=== PATIENT | male | born 1935 | race Caucasian/White ===

== ENCOUNTER 2016-02-24 10:32 | Emergency (ER) | payer MEDICARE, OTHER ==
[~2016-02-24] VITALS: Ht 170.2 cm; Wt 64.0 kg
[~2016-02-24 10:32] MED LIST: ALBU8I INH; ALPR.25 PO; NORC10TA2 PO; SYMB80AE INH; TAB-TAB PO; TIOT18I; TRAZ300T2 PO; ZOCO40TA PO
[2016-02-24 10:51] VITALS: BP 135/83; PULSE 92; RESP 16; TEMP 98.8; O2SAT 95
[2016-02-24] MEDS ORDERED: SODIUM CHLOR 0.9% 1000 ML INJ 1,000 ML IV SCH (11:02)
[2016-02-24] MEDS ORDERED: MULT1TAB85 PO (11:03)
[2016-02-24] MEDS ORDERED: TRAZ300T2 PO (11:03)
[2016-02-24] MEDS ORDERED: SPIRCAP INH (11:03)
[2016-02-24] MEDS ORDERED: ALPR0.25 PO (11:03)
[2016-02-24] MEDS ORDERED: VENTAER INH (11:03)
[2016-02-24] MEDS ORDERED: AMBI5TAB PO (11:03)
[2016-02-24] MEDS ORDERED: VITATAB43 PO (11:03)
--- NOTE | 2016-02-24 11:12 | PD ---
HPI Chief Complaint: Abdominal Pain Time Seen by Provider: 10:55 Travel History International Travel<30 days: No Contact w/Intl Traveler<30days: No Traveled to known affect area: No History of Present Illness HPI The patient is a 80-year-old male who presents to the emergency department for abdominal pain of 4 days' duration. The patient complains of crampy lower abdominal pain for the last 4 days without any associated nausea, vomiting, or change in appetite. However, he does note decreased caliber of stool over the last 2 days, last bowel movement was yesterday, slightly thinner than normal, without any visible blood. The patient has a history of previous cholecystectomy and appendectomy. He denies any history of diverticulitis. The patient denies any associated fever, chills, sweats, dysuria, frequency, or urgency. The patient is currently undergoing chemotherapy every 3 weeks, last dose was one week ago, by his oncologist, Dr. Chicas. The patient has a history of right lobectomy secondary to lung cancer, thinks it was stage I. He denies any known history of metastasis. PFSH Past Medical History Autoimmune Disease: No Depression: Yes Cancer: Yes (LUNG) Cardiovascular Problems: Yes (CHOLESTEROL) High Cholesterol: Yes Chemotherapy: Yes ( last sunday) COPD: Yes Diabetes: No Diminished Hearing: Yes Endocrine: No Glaucoma: No Genitourinary: No Hepatitis: No Hiatal Hernia: No Hypertension: No Immune Disorder: No Musculoskeletal: Yes (PLATE NECK) Neurologic: No Psychiatric: No Reproductive: No Respiratory: Yes (copd) Thyroid Disease: No PNEUMOCCOCAL Vaccine (Year): 2004 Past Surgical History Abdominal Surgery: Yes (SHARYN, LIH, ) Body Medical Devices: PENILE IMPLANT Eye Surgery: Yes (BILAT. CATARACT SX) Genitourinary Surgery: Yes (PENILE IMPLANT) Joint Replacement: Yes (PLATE IN NECK) Neurologic Surgery: Yes (CERVICAL FUSION) Oral Surgery: Yes (DENTAL) Pacemaker: No Thoracic Surgery: No Other Surgery: Yes (TEETH EXTRACTION) Social History Alcohol Use: Yes (OCCASIONAL) Tobacco Use: Yes (2 PKS/DAY) Substance Use: No Allergies-Medications (Allergen,Severity, Reaction): Coded Allergies: No Known Allergies (Verified , 02/24/16) Reported Meds & Prescriptions Reported Meds & Active Scripts Active Reported Multivitamin Men (Multiple Vitamins W/ Minerals) 1 Tab Tab 1 Tab PO DAILY Vitamin [id number] Acid (Cobalamine Combinations) 500-400 Mcg Tab 1 Tab PO DAILY Ventolin Hfa 18 GM Inh (Albuterol Sulfate) 90 Mcg/Act Aer 1 Puff INH Q4H PRN Spiriva Handihaler (Tiotropium Inh) 18 Mcg Cap 18 Mcg INH DAILY 1 capsule = 18 mcg Trazodone (Trazodone HCl) 300 Mg Tab 300 Mg PO HS Alprazolam 0.25 Mg Tab 0.25 Mg PO TID PRN Ambien (Zolpidem Tartrate) 5 Mg Tab 5 Mg PO HS PRN Review of Systems Except as stated in HPI: all other systems reviewed are Neg General / Constitutional: No: Fever Cardiovascular: No: Chest Pain or Discomfort Respiratory: Positive: Shortness of Breath (chronic shortness of breath secondary to lobectomy, history of lung cancer) Gastrointestinal: Positive: Abdominal Pain, Changes in Bowel Habits, No: Nausea, Vomiting, Diarrhea, Loss of Appetite Musculoskeletal: No: Myalgias, Arthralgias Skin: No Rash Physical Exam Narrative GENERAL: Awake, alert, pleasant 80-year-old male who appears his stated age and is in no acute respiratory distress. SKIN: Warm and dry. HEAD: Atraumatic. Normocephalic. EYES: No injection or drainage. ENT: No nasal bleeding or discharge. Mucous membranes pink and moist. NECK: Trachea midline. No JVD. CARDIOVASCULAR: Regular rate and rhythm. No murmur appreciated. Heart rate in the 90s. Well-healed scar right lateral chest wall. RESPIRATORY: No accessory muscle use. Diminished breath sounds right lung. GASTROINTESTINAL: Abdomen soft, tender palpation left lower quadrant. No rebound tenderness. MUSCULOSKELETAL: No obvious deformities. No clubbing. No cyanosis. No edema. NEUROLOGICAL: Awake and alert. No obvious cranial nerve deficits. Motor grossly within normal limits. Normal speech. PSYCHIATRIC: Appropriate mood and affect; insight and judgment normal. Data Data Last Documented VS Vital Signs Date Time Temp Pulse Resp B/P Pulse Ox O2 Delivery O2 Flow Rate FiO2 02/24/16 11:24 84 20 134/72 96 02/24/16 10:51 98.8 Orders Complete Blood Count With Diff (02/24/16 11:02) Comprehensive Metabolic Panel (02/24/16 11:02) Lipase (02/24/16 11:02) Lactic Acid (02/24/16 11:02) Urinalysis - C+S If Indicated (02/24/16 11:02) Ct Abd/Pel W/O Iv Contrast (02/24/16 11:02) Iv Access Insert/Monitor (02/24/16 11:02) Ecg Monitoring (02/24/16 11:02) Oximetry (02/24/16 11:02) Morphine Inj (Morphine Inj) (02/24/16 11:15) Ondansetron Inj (Zofran Inj) (02/24/16 11:15) Ciprofloxacin 400 Mg Premix (Cipro 400 M (02/24/16 11:15) Metronidazole 500 Mg Inj (Flagyl 500 Mg (02/24/16 11:15) Sodium Chlor 0.9% 1000 Ml Inj (Ns 1000 M (02/24/16 11:02) Sodium Chloride 0.9% Flush (Ns Flush) (02/24/16 11:15) Labs Laboratory Tests Test 02/24/16 11:05 White Blood Count 11.2 TH/MM3 Red Blood Count 4.99 MIL/MM3 Hemoglobin 15.8 GM/DL Hematocrit 47.8 % Mean Corpuscular Volume 95.8 FL Mean Corpuscular Hemoglobin 31.7 PG Mean Corpuscular Hemoglobin 33.1 % Concent Red Cell Distribution Width 14.0 % Platelet Count 223 TH/MM3 Mean Platelet Volume 7.2 FL Neutrophils (%) (Auto) 77.6 % Lymphocytes (%) (Auto) 14.7 % Monocytes (%) (Auto) 5.7 % Eosinophils (%) (Auto) 0.4 % Basophils (%) (Auto) 1.6 % Neutrophils # (Auto) 8.8 TH/MM3 Lymphocytes # (Auto) 1.6 TH/MM3 Monocytes # (Auto) 0.6 TH/MM3 Eosinophils # (Auto) 0.0 TH/MM3 Basophils # (Auto) 0.2 TH/MM3 CBC Comment DIFF FINAL Differential Comment Sodium Level 139 MEQ/L Potassium Level 4.0 MEQ/L Chloride Level 104 MEQ/L Carbon Dioxide Level 27.3 MEQ/L Anion Gap 8 MEQ/L Blood Urea Nitrogen 7 MG/DL Creatinine 0.97 MG/DL Estimat Glomerular Filtration 75 ML/MIN Rate Random Glucose 93 MG/DL Lactic Acid Level 1.0 mmol/L Calcium Level 8.4 MG/DL Total Bilirubin 0.6 MG/DL Aspartate Amino Transf 11 U/L (AST/SGOT) Alanine Aminotransferase 20 U/L (ALT/SGPT) Alkaline Phosphatase 63 U/L Total Protein 6.7 GM/DL Albumin 3.0 GM/DL Lipase 72 U/L [facility] Medical Decision Making Medical Screen Exam Complete: Yes Emergency Medical Condition: Yes Medical Record Reviewed: Yes Interpretation(s) CT of the abdomen and pelvis reveals mild colitis involving the splenic flexure and distal colon. Otherwise stable CT appearance of the abdomen and pelvis. Laboratory Tests Test 02/24/16 11:05 White Blood Count 11.2 TH/MM3 Red Blood Count 4.99 MIL/MM3 Hemoglobin 15.8 GM/DL Hematocrit 47.8 % Mean Corpuscular Volume 95.8 FL Mean Corpuscular Hemoglobin 31.7 PG Mean Corpuscular Hemoglobin 33.1 % Concent Red Cell Distribution Width 14.0 % Platelet Count 223 TH/MM3 Mean Platelet Volume 7.2 FL Neutrophils (%) (Auto) 77.6 % Lymphocytes (%) (Auto) 14.7 % Monocytes (%) (Auto) 5.7 % Eosinophils (%) (Auto) 0.4 % Basophils (%) (Auto) 1.6 % Neutrophils # (Auto) 8.8 TH/MM3 Lymphocytes # (Auto) 1.6 TH/MM3 Monocytes # (Auto) 0.6 TH/MM3 Eosinophils # (Auto) 0.0 TH/MM3 Basophils # (Auto) 0.2 TH/MM3 CBC Comment DIFF FINAL Differential Comment Sodium Level 139 MEQ/L Potassium Level 4.0 MEQ/L Chloride Level 104 MEQ/L Carbon Dioxide Level 27.3 MEQ/L Anion Gap 8 MEQ/L Blood Urea Nitrogen 7 MG/DL Creatinine 0.97 MG/DL Estimat Glomerular Filtration 75 ML/MIN Rate Random Glucose 93 MG/DL Lactic Acid Level 1.0 mmol/L Calcium Level 8.4 MG/DL Total Bilirubin 0.6 MG/DL Aspartate Amino Transf 11 U/L (AST/SGOT) Alanine Aminotransferase 20 U/L (ALT/SGPT) Alkaline Phosphatase 63 U/L Total Protein 6.7 GM/DL Albumin 3.0 GM/DL Lipase 72 U/L Differential Diagnosis Differential diagnosis includes diverticulitis, metastasis, colitis, pancreatitis, partial small bowel obstruction, UTI. Narrative Course IV was established, labs were drawn and sent, and the patient was placed on cardiac telemetry monitoring and continuous pulse oximetry monitoring. The patient was administered morphine, Zofran, and placed on IV fluids. The patient was administered Cipro 400 mg intravenously and Flagyl 500 mg intravenously for initially presumed diverticulitis. CT of the abdomen and pelvis was ordered, the CT scanner at [facility] was being repaired, therefore, patient was transferred to [facility] for CT of the abdomen and pelvis. The patient's white count is mildly elevated 11.2, lactic acid was unremarkable. Otherwise labs are unremarkable. CT the abdomen and pelvis does reveal mild colitis involving the splenic flexure and distal colon. The patient is currently on chemotherapy every 3 weeks by his oncologist, Dr. Chicas, therefore, his oncologist was paged at 12:45 PM. I discussed the patient with Dr. Chicas she states the patient be discharged home and he will see the patient prior to his next round of chemotherapy. The patient is comfortable with this plan of care and disposition. Diagnosis Primary Impression: Colitis Patient Instructions: General Instructions, Narcotic given in the ED Additional Instructions: Medications as directed. Follow-up with your oncologist. Return if symptoms worsen or progress. Diet as tolerated. Med/Other Pt SpecificInfo: Prescription(s) given Scripts Hydrocodone-Acetaminophen ([place])5-325 mg Tab1 Tab PO Q6H PRN (PAIN) #20 TAB Ref 0 Prov:Kendall Le MD 02/24/16 Metronidazole (Flagyl)500 Mg [id number] Mg PO BID 7 Days Ref 0 Prov:Kendall Le MD 02/24/16 Ciprofloxacin (Cipro)500 Mg [id number] Mg PO BID #7 TAB Ref 0 Prov:Kendall Le MD 02/24/16 Disposition: DISCHARGE HOME Condition: Stable Kendall Le MD Feb 24, 2016 11:12
[2016-02-24 11:14] VITALS: O2SAT 97
[2016-02-24] MEDS ORDERED: ONDANSETRON HCL 4 MG/2 ML VIAL IVP ONE (11:15)
[2016-02-24] MEDS ORDERED: SODIUM CHLORIDE 0.9% FLUSH 5 ML FLUSH IVF PRN (11:15)
[2016-02-24] MEDS ORDERED: metroNIDAZOLE 500 MG INJ 100 ML IV ONE (11:15)
[2016-02-24] MEDS ORDERED: CIPROFLOXACIN 400 MG PREMIX 200 ML IV ONE (11:15)
[2016-02-24] MEDS ORDERED: MORPHINE SULFATE 4 MG/ML INJ IV PUSH ONE (11:15)
[2016-02-24 11:18] LABS: AUTOMATED NEUTROPHIL # 8.8 TH/MM3 (1.8-7.7); BASOPHIL # 0.2 TH/MM3 (0-0.2); BASOPHIL % 1.6 % (0.0-2.0); EOSINOPHIL % 0.4 % (0.0-4.0); HEMATOCRIT 47.8 % (39.0-51.0); LYMPH % 14.7 % (9.0-44.0); LYMPHOCYTE # 1.6 TH/MM3 (1.0-4.8); MEAN CELL VOLUME 95.8 FL (80.0-100.0); MEAN CORPUSCULAR HEMOGLOBIN 31.7 PG (27.0-34.0); MEAN CORPUSCULAR HGB CONC 33.1 % (32.0-36.0); MONO % 5.7 % (0.0-8.0); NEUT % 77.6 % (16.0-70.0); PLATELET COUNT 223 TH/MM3 (150-450); RED BLOOD COUNT 4.99 MIL/MM3 (4.50-5.90); WHITE BLOOD COUNT 11.2 TH/MM3 (4.0-11.0)
[2016-02-24 11:20] LABS: HEMO FLAGS DIFF FINAL
[2016-02-24 11:24] VITALS: BP 134/72; PULSE 84; RESP 20; O2SAT 96
[2016-02-24 11:28] LABS: CHLORIDE 104 MEQ/L (98-107); SODIUM (NA) 139 MEQ/L (136-145)
[2016-02-24 11:32] LABS: ANION GAP 8 MEQ/L (5-15); BICARBONATE 27.3 MEQ/L (21.0-32.0); BLOOD UREA NITROGEN 7 MG/DL (7-18)
[2016-02-24 11:35] LABS: ALT (GPT) 20 U/L (12-78); AST (GOT) 11 U/L (15-37); GLOMERULAR FILTRATION RATE 75 ML/MIN (>89)
[2016-02-24 11:36] LABS: TOTAL BILIRUBIN ADULT 0.6 MG/DL (0.2-1.0)
[2016-02-24 11:38] LABS: ALKALINE PHOSPHATASE 63 U/L (45-117)
--- NOTE | 2016-02-24 12:42 | RADRPT ---
EXAM DATE/TIME: 02/24/2016 12:19 [facility] COMPARISON: CT ABDOMEN & PELVIS W CONTRAST, June 25, 2014, 2:08. INDICATIONS : Left lower quadrant pain for four days. ORAL CONTRAST: No oral contrast ingested. RADIATION DOSE: 6.21 CTDIvol (mGy) MEDICAL HISTORY : Chronic obstructive pulmonary disease. Carcinoma, lung. SURGICAL HISTORY : Cholecystectomy. Inguinal hernia repair.Appendectomy.Right lobectomy. ENCOUNTER: Initial ACUITY: 4 - 6 days PAIN SCALE: 8/10 LOCATION: Left lower quadrant TECHNIQUE: Volumetric scanning of the abdomen and pelvis was performed. Using automated exposure control and ad justment of the mA and/or kV according to patient size, radiation dose was kept as low as reasonably achievable to obtain optimal diagnostic quality images. FINDINGS: LOWER LUNGS: Partially loculated right pleural effusion is similar to prior. A tiny nodule in the posterolateral l eft lung base is also stable. No pericardial effusion present, unchanged LIVER: 2 small liver cysts appear stable. No evidence of biliary ductal dilatation. Gallbladder is surgicall y absent. SPLEEN: Normal size without lesion. PANCREAS: Within normal limits. KIDNEYS: 2 left renal cysts are stable. No evidence of hydronephrosis. Tiny nonobstructing stones in the right upper pole collecting system. ADRENAL GLANDS: Within normal limits. VASCULAR: There is no aortic aneurysm. BOWEL/MESENTERY: Appears to be mild concentric wall thickening and slight pericolic inflammatory change most notably a djacent to the splenic flexure and proximal descending colon. Prominent diverticular involvement of t he distal colon, mainly the sigmoid. No evidence of abnormal dilatation. No extraluminal gas or fluid . ABDOMINAL WALL: Tiny right lower quadrant abdominal wall hernia defect containing fat. No evidence of incarceration. RETROPERITONEUM: There is no lymphadenopathy. BLADDER: No wall thickening or mass. REPRODUCTIVE: Penile implant with reservoir in the deep right pelvis INGUINAL: There is no lymphadenopathy or hernia. MUSCULOSKELETAL: Stable CONCLUSION: Suspect mild colitis involving the splenic flexure and distal colon. Otherwise stable CT appearance of the abdomen and pelvis. Tre Machado MD on February 24, 2016 at 12:33 Board Certified Radiologist. This report was verified electronically.
[2016-02-24] MEDS ORDERED: CIPR-9 PO (13:08)
[2016-02-24] MEDS ORDERED: METR-1 PO (13:09)
[2016-02-24] MEDS ORDERED: NORC5TAB PO (13:09)
[2016-02-24 13:13] VITALS: BP 142/80; PULSE 79; RESP 20; O2SAT 92
[2016-02-24] MEDS ORDERED: HYDROmorphone HCL PF 1 MG/ML VIAL IV PUSH ONE (13:15)
[2016-02-24 14:31] VITALS: BP 134/76; PULSE 78; RESP 20; O2SAT 94
== END 2016-02-24 15:00 | disposition home or self-care (01) ==
LOC: PHED 10:32
DX: K52.9 Noninfective gastroenteritis and colitis, unspecified (principal); J44.9 Chronic obstructive pulmonary disease, unspecified; E78.00 Pure hypercholesterolemia, unspecified
CPT/HCPCS: 74176; 80053; 83605; 83690; 85025; 96365; 96366; 96368; 96375; 99284; J0744; J1170; J2270; J2405; J7030

== ENCOUNTER 2017-02-12 08:54 | Emergency (ER) | payer MEDICARE, OTHER ==
[~2017-02-12] VITALS: Ht 170.2 cm; Wt 62.0 kg
[~2017-02-12 08:54] MED LIST changes: -ALBU8I INH; -ALPR.25 PO; +ALPR0.25 PO; +AMBI5TAB PO; +CIPR-9 PO; +METR-1 PO; +MULT1TAB85 PO; -NORC10TA2 PO; +NORC5TAB PO; +SPIRCAP INH; -SYMB80AE INH; -TAB-TAB PO; -TIOT18I; +VENTAER INH; +VITATAB43 PO; -ZOCO40TA PO
[2017-02-12 09:07] VITALS: BP 148/80; PULSE 76; RESP 24; TEMP 97.6; O2SAT 89
[2017-02-12 09:12] VITALS: O2SAT 93
--- NOTE | 2017-02-12 09:12 | PD ---
HPI Chief Complaint: Chest Pain Time Seen by Provider: 09:06 Travel History International Travel<30 days: No Contact w/Intl Traveler<30days: No History of Present Illness HPI 81-year-old male patient with history of COPD, lung cancer stage IV currently on chemotherapy with Dr. Cornell, presents to the ER today because of left-sided chest pains which have been going on for several days intermittently. He states that it hurts more with moving and taking deep breaths. He has been having some coughing. He denies any fevers, vomiting, or any other symptoms. Modifying Factors: Worse with taking deep breaths and coughing Associated Signs & Symptoms: Left-sided chest pains Risk Factors: Lung cancer PFSH Past Medical History Autoimmune Disease: No Depression: Yes Cancer: Yes (LUNG) Cardiovascular Problems: Yes (CHOLESTEROL) High Cholesterol: Yes Chemotherapy: Yes ( last sunday) COPD: Yes Diabetes: No Diminished Hearing: Yes Endocrine: No Glaucoma: No Genitourinary: No Hepatitis: No Hiatal Hernia: No Hypertension: No Immune Disorder: No Musculoskeletal: Yes (PLATE NECK) Neurologic: No Psychiatric: No Reproductive: No Respiratory: Yes (copd) Thyroid Disease: No PNEUMOCCOCAL Vaccine (Year): 2004 Past Surgical History Abdominal Surgery: Yes (SHARYN, LIH, ) Body Medical Devices: PENILE IMPLANT Eye Surgery: Yes (BILAT. CATARACT SX) Genitourinary Surgery: Yes (PENILE IMPLANT) Joint Replacement: Yes (PLATE IN NECK) Neurologic Surgery: Yes (CERVICAL FUSION) Oral Surgery: Yes (DENTAL) Pacemaker: No Thoracic Surgery: No Other Surgery: Yes (TEETH EXTRACTION) Social History Alcohol Use: Yes (OCCASIONAL) Tobacco Use: Yes (2 PKS/DAY) Substance Use: No Allergies-Medications (Allergen,Severity, Reaction): Coded Allergies: No Known Allergies (Verified Adverse Reaction, Unknown, 02/12/17) Reported Meds & Prescriptions Reported Meds & Active Scripts Active Reported Lorcet Hd 10-325 mg (Hydrocodone-Acetaminophen) 10 Mg-325 Mg Tab 1 Tab PO Q8HR PRN Cymbalta DR (Duloxetine HCl) 20 Mg Capdr 20 Mg PO DAILY Prednisone 10 Mg Tab 10 Mg PO DAILY Ventolin Hfa 18 GM Inh (Albuterol Sulfate) 90 Mcg/Act Aer 1 Puff INH Q4H PRN Spiriva Handihaler (Tiotropium Inh) 18 Mcg Cap 18 Mcg INH DAILY 1 capsule = 18 mcg Alprazolam 0.25 Mg Tab 0.25 Mg PO TID PRN Review of Systems Except as stated in HPI: all other systems reviewed are Neg Physical Exam Narrative GENERAL: Well-developed elderly white male patient currently in mild distress. Awake and oriented 3. SKIN: Focused skin assessment warm/dry. HEAD: Atraumatic. Normocephalic. EYES: Pupils equal and round. No scleral icterus. No injection or drainage. ENT: No nasal bleeding or discharge. Mucous membranes pink and moist. NECK: Trachea midline. No JVD. CARDIOVASCULAR: Regular rate and rhythm. No murmur appreciated. Pulses are present and equal bilaterally. CHEST: Tender palpation of the left lateral and anterior chest wall without deformity or crepitance. No retractions or use of accessory muscles. RESPIRATORY: No accessory muscle use. Clear to auscultation. Breath sounds equal bilaterally. GASTROINTESTINAL: Abdomen soft, non-tender, nondistended. Hepatic and splenic margins not palpable. MUSCULOSKELETAL: No obvious deformities. No clubbing. No cyanosis. No edema. NEUROLOGICAL: Awake and alert. No obvious cranial nerve deficits. Motor grossly within normal limits. Normal speech. PSYCHIATRIC: Appropriate mood and affect; insight and judgment normal. Data Data Last Documented VS Vital Signs Date Time Temp Pulse Resp B/P (MAP) Pulse Ox O2 Delivery O2 Flow Rate FiO2 02/12/17 11:22 66 16 139/73 (95) 94 Nasal Cannula 2.00 02/12/17 09:07 97.6 Orders Orders Complete Blood Count With Diff (02/12/17 09:06) Comprehensive Metabolic Panel (02/12/17 09:06) B-Type Natriuretic Peptide (02/12/17 09:06) Act Partial Throm Time (Ptt) (02/12/17 09:06) Prothrombin Time / Inr (Pt) (02/12/17 09:06) Ckmb (Isoenzyme) Profile (02/12/17 09:06) Troponin I (02/12/17 09:06) Blood Culture (02/12/17 09:06) Iv Access Insert/Monitor (02/12/17 09:06) Ecg Monitoring (02/12/17 09:06) Oximetry (02/12/17 09:06) Oxygen Administration (02/12/17 09:06) Chest, Single Ap (02/12/17 09:06) Sodium Chloride 0.9% Flush (Ns Flush) (02/12/17 09:15) Ct Pulmonary Angiogram (02/12/17 11:21) Morphine Inj (Morphine Inj) (02/12/17 11:30) Ondansetron Inj (Zofran Inj) (02/12/17 11:30) Iohexol 350 Inj (Omnipaque 350 Inj) (02/12/17 11:59) Ibuprofen (Motrin) (02/12/17 12:15) Rivaroxaban (Xarelto) (02/12/17 12:45) Ed Discharge Order (02/12/17 12:44) Labs Laboratory Tests Test 02/12/17 09:15 White Blood Count 9.8 TH/MM3 Red Blood Count 5.42 MIL/MM3 Hemoglobin 17.9 GM/DL Hematocrit 53.3 % Mean Corpuscular Volume 98.3 FL Mean Corpuscular Hemoglobin 33.0 PG Mean Corpuscular Hemoglobin Concent 33.6 % Red Cell Distribution Width 13.6 % Platelet Count 223 TH/MM3 Mean Platelet Volume 7.6 FL Neutrophils (%) (Auto) 74.6 % Lymphocytes (%) (Auto) 19.2 % Monocytes (%) (Auto) 4.1 % Eosinophils (%) (Auto) 0.8 % Basophils (%) (Auto) 1.3 % Neutrophils # (Auto) 7.3 TH/MM3 Lymphocytes # (Auto) 1.9 TH/MM3 Monocytes # (Auto) 0.4 TH/MM3 Eosinophils # (Auto) 0.1 TH/MM3 Basophils # (Auto) 0.1 TH/MM3 CBC Comment DIFF FINAL Differential Comment Prothrombin Time 10.3 SEC Prothromb Time International Ratio 1.0 RATIO Activated Partial Thromboplast Time 26.8 SEC Blood Urea Nitrogen 10 MG/DL Creatinine 0.95 MG/DL Random Glucose 105 MG/DL Total Protein 6.4 GM/DL Albumin 3.4 GM/DL Calcium Level 8.5 MG/DL Alkaline Phosphatase 59 U/L Aspartate Amino Transf (AST/SGOT) 19 U/L Alanine Aminotransferase (ALT/SGPT) 22 U/L Total Bilirubin 0.7 MG/DL Sodium Level 139 MEQ/L Potassium Level 3.7 MEQ/L Chloride Level 103 MEQ/L Carbon Dioxide Level 29.2 MEQ/L Anion Gap 7 MEQ/L Estimat Glomerular Filtration Rate 76 ML/MIN Total Creatine Kinase 26 U/L Troponin I 0.02 NG/ML B-Type Natriuretic Peptide 84 PG/ML MDM Medical Decision Making Medical Screen Exam Complete: Yes Emergency Medical Condition: Yes Medical Record Reviewed: Yes Interpretation(s) EKG shows NSR, no ST elevation or depression, and no arrhythmias. No significant T-wave inversions. Laboratory Tests Test 02/12/17 09:15 Hemoglobin 17.9 GM/DL (13.0-17.0) Hematocrit 53.3 % (39.0-51.0) Neutrophils (%) (Auto) 74.6 % (16.0-70.0) Estimat Glomerular Filtration Rate 76 ML/MIN (>89) Total Creatine Kinase 26 U/L (39-308) Last [address] Angiography 02/12/17 1121 Signed Impressions: Service Date/Time: Sunday, February 12, 2017 11:46 - CONCLUSION: Subsegmental emboli right lower lobe best seen series 3 image 65. Marked improvement in the changes both lungs Pleural thickening and trace fluid on the right. Shubham Moran MD FACR Chest X-Ray 02/12/17 0906 Signed Impressions: Service Date/Time: Sunday, February 12, 2017 09:14 - CONCLUSION: Mild congestive failure Shubham Moran MD FACR Differential Diagnosis Left-sided chest wall pains, dyspnea: Pneumonia versus pleurisy versus costochondritis versus cancer related pain versus ACS Narrative Course Chest x-ray shows questionable pneumonitis, versus mild CHF. Lab work was otherwise unremarkable. Considering his symptoms, a CTA was ordered to rule out PE and it did show a right lower lobe PE. At this point, case was discussed with patient's primary care doctor, Dr. Ny, and we have considered admission versus outpatient therapy. Patient is refusing to be admitted currently. His vital signs are stable so at this point, we thought it would be reasonable to give him a dose of Xarelto and give him a prescription for Xarelto and have her follow-up with Dr. Ny in the office tomorrow for further treatment. Return for any worsening in symptoms as needed. The plan has been discussed with him and he states understanding. Diagnosis Primary Impression: Chest pain Additional Impression: Pulmonary embolism Med/Other Pt SpecificInfo: Prescription(s) given Scripts Rivaroxaban (Xarelto) 15 Mg Tab 15 MG PO Q12HR for Blood Clot Prevention for 7 Days, TAB 0 Refills Prov: Monique Gauthier MD 02/12/17 Disposition: 01 DISCHARGE HOME Condition: Stable Monique Gauthier MD Feb 12, 2017 09:12
[2017-02-12] MEDS ORDERED: SODIUM CHLORIDE 0.9% FLUSH 10 ML FLUSH IVF PRN (09:15)
[2017-02-12] MEDS ORDERED: HYDR-3578 PO (09:19)
[2017-02-12] MEDS ORDERED: PRED10 PO (09:19)
[2017-02-12] MEDS ORDERED: DULO20 PO (09:19)
--- NOTE | 2017-02-12 09:31 | RADRPT ---
EXAM DATE/TIME: 02/12/2017 09:14 [facility] COMPARISON: CHEST SINGLE AP, December 18, 2014, 9:15. INDICATIONS : Short of breath. Cough. MEDICAL HISTORY : Chronic obstructive pulmonary disease. Carcinoma, lung. SURGICAL HISTORY : Cholecystectomy. Inguinal hernia repair.Appendectomy.Right lobectomy. ENCOUNTER: Initial ACUITY: 2 days PAIN SCORE: 5/10 LOCATION: Bilateral chest FINDINGS: Mild interstitial edema . [id number] in good position. Stable to improved parenchymal changes r ight base CONCLUSION: Mild congestive failure Shubham Moran MD FACR on February 12, 2017 at 9:28 Board Certified Radiologist. This report was verified electronically.
[2017-02-12 09:38] LABS: AUTOMATED NEUTROPHIL # 7.3 TH/MM3 (1.8-7.7); BASOPHIL # 0.1 TH/MM3 (0-0.2); BASOPHIL % 1.3 % (0.0-2.0); EOSINOPHIL # 0.1 TH/MM3 (0-0.4); EOSINOPHIL % 0.8 % (0.0-4.0); HEMATOCRIT 53.3 % (39.0-51.0); HEMOGLOBIN 17.9 GM/DL (13.0-17.0); LYMPH % 19.2 % (9.0-44.0); LYMPHOCYTE # 1.9 TH/MM3 (1.0-4.8); MEAN CELL VOLUME 98.3 FL (80.0-100.0); MEAN CORPUSCULAR HGB CONC 33.6 % (32.0-36.0); MEAN PLATELET VOLUME 7.6 FL (7.0-11.0); MONO % 4.1 % (0.0-8.0); MONOCYTE # 0.4 TH/MM3 (0-0.9); NEUT % 74.6 % (16.0-70.0); PLATELET COUNT 223 TH/MM3 (150-450); RED BLOOD COUNT 5.42 MIL/MM3 (4.50-5.90); RED CELL DISTRIBUTION WIDTH 13.6 % (11.6-17.2); WHITE BLOOD COUNT 9.8 TH/MM3 (4.0-11.0)
[2017-02-12 09:43] LABS: PROTHROMBIN TIME - PATIENT 10.3 SEC (9.8-11.6)
[2017-02-12 09:53] LABS: CALCIUM 8.5 MG/DL (8.5-10.1)
[2017-02-12 09:54] LABS: ALBUMIN 3.4 GM/DL (3.4-5.0); BICARBONATE 29.2 MEQ/L (21.0-32.0); GLUCOSE,RANDOM 105 MG/DL (74-106)
[2017-02-12 09:57] LABS: CREATININE 0.95 MG/DL (0.60-1.30); GLOMERULAR FILTRATION RATE 76 ML/MIN (>89)
[2017-02-12 09:59] LABS: TOTAL BILIRUBIN ADULT 0.7 MG/DL (0.2-1.0); TOTAL PROTEIN 6.4 GM/DL (6.4-8.2)
[2017-02-12 10:00] LABS: ALKALINE PHOSPHATASE 59 U/L (45-117)
[2017-02-12 10:22] VITALS: BP 140/68; PULSE 65; RESP 18; O2SAT 98
[2017-02-12 11:03] LABS: CHLORIDE 103 MEQ/L (98-107); SODIUM (NA) 139 MEQ/L (136-145)
[2017-02-12 11:08] LABS: BLOOD UREA NITROGEN 10 MG/DL (7-18)
[2017-02-12 11:11] LABS: ALT (GPT) 22 U/L (12-78); AST (GOT) 19 U/L (15-37)
[2017-02-12 11:15] LABS: TROPONIN I 0.02 NG/ML (0.02-0.05)
[2017-02-12 11:22] VITALS: BP 139/73; PULSE 66; RESP 16; O2SAT 94
[2017-02-12] MEDS ORDERED: MORPHINE SULFATE 2 MG/ML INJ IV PUSH ONE (11:30)
[2017-02-12] MEDS ORDERED: ONDANSETRON HCL 4 MG/2 ML VIAL IV PUSH ONE (11:30)
[2017-02-12] MEDS ORDERED: IOHEXOL 350 MG/ML 10 ML VIAL (for RAD DIAG) IVCONTRAST ONE (11:59)
[2017-02-12] MEDS ORDERED: IBUPROFEN 600 MG TAB PO ONE (12:15)
--- NOTE | 2017-02-12 12:23 | RADRPT ---
EXAM DATE/TIME: 02/12/2017 11:46 [facility] COMPARISON: No previous studies available for comparison. INDICATIONS : Short of breath with left sided chest pain. Evaluate for embolism. IV CONTRAST: 65 cc Omnipaque 350 (iohexol) IV RADIATION DOSE: 8.49 CTDIvol (mGy) MEDICAL HISTORY : Hypercholesterolemia. Chronic obstructive pulmonary disease. Carcinoma, lung. SURGICAL HISTORY : Fusion, cervical. Cholecystectomy.Right lower lobectomy. ENCOUNTER: Initial ACUITY: 1 week PAIN SCALE: 4/10 LOCATION: Left chest TECHNIQUE: Volumetric scanning of the chest was performed using a pulmonary embolism protocol MIP images were re constructed. Using automated exposure control and adjustment of the mA and/or kV according to patien t size, radiation dose was kept as low as reasonably achievable to obtain optimal diagnostic quality images. DICOM format image data is available electronically for review and comparison. Follow-up recommendations for detected pulmonary nodules are based at a minimum on nodule size and pa tient risk factors according to Fleischner Society Guidelines. FINDINGS: PULMONARY ARTERIES: Small peripheral emboli right lower lobe. LUNGS: Moderate emphysematous changes in both lungs. PLEURAE: Moderate pleural thickening and trace fluid on the right. MEDIASTINUM: Moderate coronary calcifications. Trace pericardial effusion. MUSCULOSKELETAL: Degenerative changes MISCELLANEOUS: Probable cyst 1 cm hepatic cyst. CONCLUSION: Subsegmental emboli right lower lobe best seen series 3 image 65. Marked improvement in the changes both lungs Pleural thickening and trace fluid on the right. Shubham Moran MD FACR on February 12, 2017 at 12:19 Board Certified Radiologist. This report was verified electronically.
[2017-02-12] MEDS ORDERED: RIVAROXABAN 15 MG TAB PO ONE (12:45)
[2017-02-12 12:49] VITALS: BP 129/72; PULSE 74; RESP 18; O2SAT 98
[2017-02-12] MEDS ORDERED: XARE15TA PO (12:51)
--- NOTE | 2017-02-13 17:20 | EKG ---
Date Performed: 02/12/2017 Time Performed: 08:59:26 PTAGE: 81 years EKG: Sinus rhythm WITH OCCASIONAL SUPRAVENTRICULAR PREMATURE COMPLEXES LEFT ANTERIOR FASCICULAR BLOCK Since previous t racing, no significant change noted ABNORMAL ECG PREVIOUS TRACING : 01/29/2012 11.48 DOCTOR: Key Beltrán Interpretating Date/Time 02/13/2017 17:19:24
== END 2017-02-12 13:09 | disposition home or self-care (01) ==
LOC: PHED 08:54
DX: R07.9 Chest pain, unspecified (principal); I26.99 Other pulmonary embolism without acute cor pulmonale; C34.90 Malignant neoplasm of unspecified part of unspecified bronchus or lung; E78.00 Pure hypercholesterolemia, unspecified; F32.9 Major depressive disorder, single episode, unspecified; J44.9 Chronic obstructive pulmonary disease, unspecified; F17.200 Nicotine dependence, unspecified, uncomplicated; R94.31 Abnormal electrocardiogram [ECG] [EKG]
CPT/HCPCS: 71010; 71275; 80053; 82550; 83880; 84484; 85025; 85610; 85730; 87040; 93005; 96374; 96375; 99285; J2270; J2405; Q9967

== ENCOUNTER 2017-04-29 04:47 | Inpatient (IN) | payer MEDICARE, OTHER ==
[~2017-04-29] VITALS: Ht 167.6 cm; Wt 57.9 kg
[2017-04-29] VITALS (16 sets, daily range): BP systolic 112–159; BP diastolic 52–86; PULSE 68–102; RESP 16–28; TEMP 97.6–98.3; O2SAT 91–100
[~2017-04-29 04:47] MED LIST changes: -AMBI5TAB PO; -CIPR-9 PO; +DULO20 PO; +HYDR-3578 PO; -METR-1 PO; -MULT1TAB85 PO; -NORC5TAB PO; +PRED10 PO; -TRAZ300T2 PO; -VITATAB43 PO; +XARE15TA PO
[2017-04-29] MEDS ORDERED: PERC5TAB12 PO (05:23)
--- NOTE | 2017-04-29 05:25 | RADRPT ---
EXAM DATE/TIME: 04/29/2017 05:04 [facility] COMPARISON: CT PULMONARY ANGIOGRAM, February 12, 2017, 11:46. CHEST SINGLE AP, February 12, 2017, 9:14. INDICATIONS : Shortness of breath. MEDICAL HISTORY : Hypercholesterolemia. Chronic obstructive pulmonary disease. Carcinoma lung SURGICAL HISTORY : Fusion, cervical. Cholecystectomy.Right lower lobectomy ENCOUNTER: Initial ACUITY: 1 day PAIN SCORE: 4/10 LOCATION: Bilateral chest FINDINGS: Emphysema and chronic interstitial changes of both lungs again noted without significant change. No p erceptible acute infiltrate. No pleural effusion demonstrated. No pneumothorax. Heart size stable, within normal limits. Right internal jugular [id number] catheter with tip at the atriocaval junction again seen. CONCLUSION: Chronic changes as above. No acute cardiopulmonary disease demonstrated. Tre Rangel MD on April 29, 2017 at 5:22 Board Certified Radiologist. This report was verified electronically.
[2017-04-29] MEDS ORDERED: RESP: ALBUTEROL 2.5 MG/IPRATROPIUM 0.5 MG NEB (SCH) NEB ONE (06:00)
[2017-04-29] MEDS ORDERED: ONDANSETRON HCL 4 MG/2 ML VIAL IV PUSH ONE (06:00)
[2017-04-29] MEDS ORDERED: MORPHINE SULFATE 2 MG/ML INJ IV PUSH ONE (06:00)
[2017-04-29 06:53] LABS: AUTOMATED NEUTROPHIL # 8.4 TH/MM3 (1.8-7.7); BASOPHIL # 0.2 TH/MM3 (0-0.2); BASOPHIL % 1.7 % (0.0-2.0); EOSINOPHIL # 0.1 TH/MM3 (0-0.4); EOSINOPHIL % 0.8 % (0.0-4.0); HEMATOCRIT 45.6 % (39.0-51.0); HEMOGLOBIN 15.3 GM/DL (13.0-17.0); LYMPH % 12.1 % (9.0-44.0); LYMPHOCYTE # 1.3 TH/MM3 (1.0-4.8); MEAN CELL VOLUME 94.7 FL (80.0-100.0); MEAN CORPUSCULAR HEMOGLOBIN 31.9 PG (27.0-34.0); MEAN CORPUSCULAR HGB CONC 33.6 % (32.0-36.0); MEAN PLATELET VOLUME 7.2 FL (7.0-11.0); MONO % 7.1 % (0.0-8.0); MONOCYTE # 0.8 TH/MM3 (0-0.9); NEUT % 78.3 % (16.0-70.0); PLATELET COUNT 215 TH/MM3 (150-450); RED BLOOD COUNT 4.82 MIL/MM3 (4.50-5.90); WHITE BLOOD COUNT 10.8 TH/MM3 (4.0-11.0)
[2017-04-29 07:04] LABS: CALCIUM 8.3 MG/DL (8.5-10.1)
[2017-04-29 07:05] LABS: BICARBONATE 29.9 MEQ/L (21.0-32.0)
[2017-04-29 07:08] LABS: CREATININE 0.84 MG/DL (0.60-1.30)
[2017-04-29 07:12] LABS: INTERNATIONAL NORMALIZED RATIO 0.9 RATIO; PROTHROMBIN TIME - PATIENT 9.6 SEC (9.8-11.6)
[2017-04-29] MEDS ORDERED: IOHEXOL 350 MG/ML 10 ML VIAL (for RAD DIAG) IVCONTRAST ONE (07:42)
--- NOTE | 2017-04-29 07:43 | PD ---
HPI Chief Complaint: Fall Time Seen by Provider: 05:54 Travel History International Travel<30 days: No Contact w/Intl Traveler<30days: No Traveled to known affect area: No History of Present Illness HPI 82-year-old male with history of COPD and lung cancer presents to the emergency department by EMS transport from home for evaluation of left lower posterior rib pain and flank pain status post reported non-syncopal fall from a swivel chair while trying to change clocks for time change; height fall approximately 5 -6 feet. Patient states that he did not hit his head or have loss of consciousness. Family member at bedside reports that they heard his fall but they were not present when he fell and heard an immediate yell along with the collateral of the fall. Upon their arrival patient was awake complaining of left-sided posterior rib pain and flank pain. Patient initially did not want to be evaluated and felt that his discomfort would resolve but due to persistent pain and pleuritic pain decided to come to the emergency room. Patient denies hitting his head denies loss of consciousness denies neck pain denies midline back pain or upper back pain does not report hemoptysis patient denies anterior chest pain sternum pain abdominal pain extremity or pelvic pain. Patient reportedly is prescribed Xarelto for recent diagnosis of PE but patient states he has not taken the medication for at least a month. Patient has history of noncompliance. Patient admits to ongoing tobacco use and uses supplemental oxygen at all times due to COPD. Patient rates his pain 9/10 in intensity. Paramedics report no obvious deformity ecchymosis or abrasion identified on their inspection. PFSH Past Medical History Narrative Medical Depression dyslipidemia lung cancer COPD supplemental oxygen diminished hearing R subsegmental PE 02/12/18; lobectomy; tobacco use; nursing notes reviewed Autoimmune Disease: No Depression: Yes Cancer: Yes (LUNG) Cardiovascular Problems: Yes (CHOLESTEROL) High Cholesterol: Yes Chemotherapy: Yes (STATED 04/29/17 "EVERY 3 WEEKS") COPD: Yes (WEARS OXYGEN CONTINUOUS @ 2L/MIN VIA NC) Diabetes: No Diminished Hearing: Yes ([place]) Endocrine: No Glaucoma: No Genitourinary: No Hepatitis: No Hiatal Hernia: No Hypertension: No Immune Disorder: No Implanted Vascular Access Dvce: Yes (INFUSAPORT RIGHT CHEST) Medical other: Yes ("ABDIFATAH FEVER A CHILD") Musculoskeletal: Yes (PLATE NECK) Neurologic: No Psychiatric: No Reproductive: No Respiratory: Yes (COPD) Thyroid Disease: No Influenza Vaccination: Yes PNEUMOCCOCAL Vaccine (Year): 2004 Past Surgical History Abdominal Surgery: Yes Appendectomy: Yes Body Medical Devices: PENILE IMPLANT Cholecystectomy: Yes Eye Surgery: Yes (BILAT. CATARACT SX) Genitourinary Surgery: Yes (PENILE IMPLANT) Joint Replacement: Yes (PLATE IN NECK) Neurologic Surgery: Yes (CERVICAL FUSION) Oral Surgery: Yes (DENTAL) Pacemaker: No Thoracic Surgery: No Other Surgery: Yes (TEETH EXTRACTION) Social History Alcohol Use: No (QUIT 2013) Tobacco Use: Yes (1/2 PKS/DAY) Substance Use: No Allergies-Medications (Allergen,Severity, Reaction): Coded Allergies: No Known Allergies (Verified Adverse Reaction, Unknown, 04/29/17) Reported Meds & Prescriptions Reported Meds & Active Scripts Active Xarelto (Rivaroxaban) 15 Mg Tab 15 Mg PO Q12HR 7 Days Reported Percocet (Oxycodone-Acetaminophen) 5-325 mg Tab 1 Tab PO Q6H PRN Cymbalta DR (Duloxetine HCl) 20 Mg Capdr 20 Mg PO DAILY Prednisone 10 Mg Tab 10 Mg PO DAILY Ventolin Hfa 18 GM Inh (Albuterol Sulfate) 90 Mcg/Act Aer 1 Puff INH Q4H PRN Spiriva Handihaler (Tiotropium Inh) 18 Mcg Cap 18 Mcg INH DAILY 1 capsule = 18 mcg Alprazolam 0.25 Mg Tab 0.25 Mg PO TID PRN Review of Systems Except as stated in HPI: all other systems reviewed are Neg General / Constitutional: No: Fever, Chills HENT: No: Congestion Cardiovascular: No: Chest Pain or Discomfort Respiratory: Positive: Shortness of Breath, Pleuritic Pain Gastrointestinal: No: Abdominal Pain Genitourinary: Positive: Flank Pain Musculoskeletal: No: Myalgias, Arthralgias Skin: No Rash Neurologic: No: Weakness Psychiatric: Positive: Anxiety Hematologic/Lymphatic: No: Lymph Node Enlargement Physical Exam Narrative GENERAL: Well-developed well-nourished elderly male with supplemental oxygen in place no acute mild respiratory distress; gcs 15 SKIN: Warm and dry. HEAD: Normocephalic. Atraumatic no scalp soft tissue swelling abrasion laceration or bony abnormality to palpation EYES: No scleral icterus. No injection or drainage. NECK: Supple, trachea midline. No JVD or lymphadenopathy. No midline tenderness to direct palpation along the cervical spine no bony step-off. CARDIOVASCULAR: Regular rate and rhythm without murmurs, gallops, or rubs. Chest wall: Reproducible tenderness to the left lower chest wall and flank. RESPIRATORY: Breath sounds equal bilaterally. No accessory muscle use. GASTROINTESTINAL: Abdomen soft, non-tender, nondistended. MUSCULOSKELETAL: No cyanosis, or edema. BACK: Nontender without obvious deformity. Left side CVA tenderness without abrasion ecchymosis or soft tissue swelling. Data Data Last Documented VS Vital Signs Date Time Temp Pulse Resp B/P (MAP) Pulse Ox O2 Delivery O2 Flow Rate FiO2 04/29/17 08:48 102 16 112/66 (81) 93 Nasal Cannula 3.00 04/29/17 04:57 97.6 Orders Orders Chest, Single Ap (04/29/17 ) Complete Blood Count With Diff (04/29/17 05:54) Basic Metabolic Panel (Bmp) (04/29/17 05:54) Ct Thorax/ Chest W Iv Contrast (04/29/17 ) Ct Abd/Pel W Iv Contrast(Rout) (04/29/17 ) Urinalysis - C+S If Indicated (04/29/17 05:54) Ondansetron Inj (Zofran Inj) (04/29/17 06:00) Morphine Inj (Morphine Inj) (04/29/17 06:00) Albuterol-Ipratropium Neb (Duoneb Neb) (04/29/17 06:00) Act Partial Throm Time (Ptt) (04/29/17 05:58) Prothrombin Time / Inr (Pt) (04/29/17 05:58) Type And Screen (04/29/17 05:58) Ct Brain W/O Iv Contrast(Rout) (04/29/17 ) Ct Cerv Spine W/O Contrast (04/29/17 ) Iohexol 350 Inj (Omnipaque 350 Inj) (04/29/17 07:42) Electrocardiogram (04/29/17 ) Labs Laboratory Tests Test 04/29/17 06:35 04/29/17 07:37 White Blood Count 10.8 TH/MM3 Red Blood Count 4.82 MIL/MM3 Hemoglobin 15.3 GM/DL Hematocrit 45.6 % Mean Corpuscular Volume 94.7 FL Mean Corpuscular Hemoglobin 31.9 PG Mean Corpuscular Hemoglobin Concent 33.6 % Red Cell Distribution Width 14.0 % Platelet Count 215 TH/MM3 Mean Platelet Volume 7.2 FL Neutrophils (%) (Auto) 78.3 % Lymphocytes (%) (Auto) 12.1 % Monocytes (%) (Auto) 7.1 % Eosinophils (%) (Auto) 0.8 % Basophils (%) (Auto) 1.7 % Neutrophils # (Auto) 8.4 TH/MM3 Lymphocytes # (Auto) 1.3 TH/MM3 Monocytes # (Auto) 0.8 TH/MM3 Eosinophils # (Auto) 0.1 TH/MM3 Basophils # (Auto) 0.2 TH/MM3 CBC Comment AUTO DIFF Differential Comment AUTO DIFF CONFIRMED Platelet Estimate NORMAL Platelet Morphology Comment NORMAL Prothrombin Time 9.6 SEC Prothromb Time International Ratio 0.9 RATIO Activated Partial Thromboplast Time 24.7 SEC Blood Urea Nitrogen 14 MG/DL Creatinine 0.84 MG/DL Random Glucose 103 MG/DL Calcium Level 8.3 MG/DL Sodium Level 137 MEQ/L Potassium Level 4.2 MEQ/L Chloride Level 99 MEQ/L Carbon Dioxide Level 29.9 MEQ/L Anion Gap 8 MEQ/L Estimat Glomerular Filtration Rate 88 ML/MIN Urine Collection Type CLEAN CATCH Urine Color YELLOW Urine Turbidity CLEAR Urine pH 5.5 Urine Specific [place] 1.025 Urine Protein 30 mg/dL Urine Glucose (UA) NEG mg/dL Urine Ketones NEG mg/dL Urine Occult Blood TRACE Urine Nitrite POS Urine Bilirubin NEG Urine Urobilinogen 0.2 MG/DL Urine Leukocyte Esterase NEG Urine RBC 0-3 /hpf Urine Squamous Epithelial Cells 0-5 /hpf Urine Amorphous Sediment MOD Microscopic Urinalysis Comment CULT NOT INDICATED Urine Collection Time 0737 [facility] Medical Decision Making Medical Screen Exam Complete: Yes Emergency Medical Condition: Yes Medical Record Reviewed: Yes Interpretation(s) EKG normal sinus rhythm rate [address] elevation injury pattern or ectopy 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 No acute cardiopulmonary disease demonstrated. Tre Rangel MD CBC & BMP Diagram 04/29/17 06:35 Calcium Level 8.3 L Vital Signs Date Time Temp Pulse Resp B/P (MAP) Pulse Ox O2 Delivery O2 Flow Rate FiO2 04/29/17 07:27 88 16 138/73 (94) 93 Nasal Cannula 2.50 04/29/17 06:52 Nasal Cannula 2.50 04/29/17 04:57 97.6 81 28 159/86 (110) 04/29/17 04:57 20 91 Nasal Cannula 2.00 Differential Diagnosis Minor closed head injury, ICH, cervical spine sprain strain fracture or cord injury, rib fracture flail chest pneumothorax hemopneumothorax coronary contusion splenic injury renal contusion Narrative Course Stat chest x-ray obtained without evidence for pneumothorax or obvious displaced rib fracture; patient placed on monitor with continuous pulse oximetry DuoNeb updraft administered; specimens collected and sent for resulting along with imaging studies ordered Patient administered morphine sulfate 1 mg IV along with Zofran 4 mg IV Patient resting comfortably with family at bedside CBC and metabolic panel coagulation studies grossly normal range; EKG sinus rhythm no acute injury pattern change noted take it he was on Xarelto for PE that was diagnosed in January CT brain noncontrast, CT cervical spine, CT thorax with IV contrast CT abdomen pelvis with IV contrast imaging studies pending @ 8:21 Patient and family aware of plan for transfer to [facility] Physician Communication Physician Communication call placed to trauma surgeon: Dr Myrick --will admit to his service but wants to see ED to ED to determine where he wants to admit the patient; discussed with Dr Le Echo Pod Diagnosis Primary Impression: Left rib fracture Qualified Codes: S22.42XA - Multiple fractures of ribs, left side, initial encounter for closed fracture Additional Impressions: COPD (chronic obstructive pulmonary disease) H/O: lung cancer Admitting Information Admitting Physician Requests: Admit Cassie Jurado MD Apr 29, 2017 07:43
--- NOTE | 2017-04-29 07:45 | RADRPT ---
EXAM DATE/TIME: 04/29/2017 07:19 [facility] COMPARISON: No previous studies available for comparison. INDICATIONS : Trauma, fall while standing on chair. RADIATION DOSE: 55.61 CTDIvol (mGy) MEDICAL HISTORY : Carcinoma, lung. Chronic obstructive pulmonary disease. SURGICAL HISTORY : None. ENCOUNTER: Initial ACUITY: 1 day PAIN SCALE: 0/10 LOCATION: cranial TECHNIQUE: Multiple contiguous axial images were obtained of the head. Using automated exposure control and adj ustment of the mA and/or kV according to patient size, radiation dose was kept as low as reasonably a chievable to obtain optimal diagnostic quality images. DICOM format image data is available electro nically for review and comparison. FINDINGS: CEREBRUM: The ventricles are normal for age. No evidence of midline shift, mass lesion, hemorrhage or acute in farction. No extra-axial fluid collections are seen. POSTERIOR FOSSA: The cerebellum and brainstem are intact. The 4th ventricle is midline. The cerebellopontine angle i s unremarkable. EXTRACRANIAL: The visualized portion of the orbits is intact. SKULL: The calvaria is intact. No evidence of skull fracture. CONCLUSION: No acute disease. No evidence of acute infarct, hemorrhage, mass or edema. Cisco Gomes MD on April 29, 2017 at 7:41 Board Certified Radiologist. This report was verified electronically.
[2017-04-29 07:53] LABS: BILIRUBIN, URINE NEG (NEG); BLOOD, URINE TRACE (NEG); GLUCOSE,URINE NEG (NEG); KETONE, URINE NEG (NEG); NITRITE,URINE POS (NEG); PH, URINE 5.5 (5.0-8.5); URINE COLOR YELLOW (YELLW/STRAW); URINE LEUKOCYTE ESTERASE NEG (NEG)
--- NOTE | 2017-04-29 07:53 | RADRPT ---
EXAM DATE/TIME: 04/29/2017 07:25 [facility] COMPARISON: CT PULMONARY ANGIOGRAM, February 12, 2017, 11:46. INDICATIONS : Trauma, fall while standing on chair.` IV CONTRAST: 95 cc Omnipaque 350 (iohexol) IV ; Cumulative dose for multiple exams. RADIATION DOSE: 11.69 CTDIvol (mGy) ; Combined studies - Thorax/Abdomen/Pelvis MEDICAL HISTORY : Carcinoma, lung. Chronic obstructive pulmonary disease. Pulmonary embolism. SURGICAL HISTORY : Appendectomy. Cholecystectomy.Infusaport. ENCOUNTER: Initial ACUITY: 1 day PAIN SCALE: 10/10 LOCATION: Left lower posterior chest. TECHNIQUE: Volumetric scanning of the chest was performed. Using automated exposure control and adjustment of t he mA and/or kV according to patient size, radiation dose was kept as low as reasonably achievable to obtain optimal diagnostic quality images. DICOM format image data is available electronically for review and comparison. Follow-up recommendations for detected pulmonary nodules are based at a minimum on nodule size and pa tient risk factors according to Fleischner Society Guidelines. FINDINGS: LUNGS: Advanced chronic obstructive pulmonary disease with extensive emphysematous changes, septal thickenin g and bronchiectasis are noted. Peripheral honeycombing is identified in both bases especially on the right characteristic of pulmonary fibrosis. Underlying segmental air space disease is noted in the l eft lower lobe posteriorly. The bronchus to the right lower lobe is dilated and contains debris. Ther e is significant scarring and partial collapse of the right lower lobe. PLEURA: A loculated. Pleural effusion is identified in the right base. This was present on 02/12/2017 and is not significantly enlarged. MEDIASTINUM: The heart is mildly enlarged. There is no evidence of hilar mass or lymphadenopathy. AXILLAE: Within normal limits. No lymphadenopathy. SKELETAL: Multiple left-sided rib fractures are identified. No displaced fractures are seen of the left eighth ninth and 10th ribs. There is a nondisplaced fracture of the 11th rib. MISCELLANEOUS: The visualized upper abdominal organs demonstrate no acute abnormality. CONCLUSION: 1. Advanced COPD with bronchiectasis and basilar fibrotic changes.. 2. No evidence of pneumothorax. 3. Chronic loculated right pleural effusion. 4. Multiple left rib fractures 5. Mild cardiomegaly. Cisco Gomes MD on April 29, 2017 at 7:43 Board Certified Radiologist. This report was verified electronically.
--- NOTE | 2017-04-29 07:57 | RADRPT ---
EXAM DATE/TIME: 04/29/2017 07:19 [facility] COMPARISON: No previous studies available for comparison. INDICATIONS : Trauma, fall while standing on chair. RADIATION DOSE: 26.61 CTDIvol (mGy) MEDICAL HISTORY : Carcinoma, lung. SURGICAL HISTORY : Fusion, cervical. ENCOUNTER: Initial ACUITY: 1 day PAIN SCALE: 0/10 LOCATION: neck TECHNIQUE: Volumetric scanning of the cervical spine was performed. Multiplanar reconstructions i n the sagittal, coronal and oblique axial planes were performed. Using automated exposure control a nd adjustment of the mA and/or kV according to patient size, radiation dose was kept as low as reason ably achievable to obtain optimal diagnostic quality images. DICOM format image data is available e lectronically for review and comparison. FINDINGS: Alignment: Cranial cervical and cervical vertebral body alignment are intact without evidence of traumatic listh esis. Osseous structures and facet joints: Postsurgical changes are noted following anterior cervical fusion at C5-6. Vertebral bodies and poste rior elements are intact. There is no evidence of acute fracture or facet subluxation. Intervertebral disc spaces: Mild degenerative changes are noted. Disc space narrowing with mild marginal spondylosis is noted at C3-4 C4-5. Neurologic structures: No evidence of soft tissue abnormality, spinal stenosis or significant foraminal encroachment. CONCLUSION: 1. No evidence of acute fracture or traumatic listhesis. 2. Status post intracervical fusion at C5-6. 3. Degenerative disc disease with mild spondylosis. Cisco Gomes MD on April 29, 2017 at 7:52 Board Certified Radiologist. This report was verified electronically.
[2017-04-29 08:00] LABS: AMORPHOUS SEDIMENT, URINE MOD; RBC, URINE 0-3 /hpf (0-3); SQUAMOUS EPITHELIAL CELL URINE 0-5 /hpf (0-5)
--- NOTE | 2017-04-29 08:02 | RADRPT ---
EXAM DATE/TIME: 04/29/2017 07:25 [facility] COMPARISON: CT ABDOMEN & PELVIS W CONTRAST, June 25, 2014, 2:08. INDICATIONS : Trauma, fall while standing on chair. IV CONTRAST: 95 cc Omnipaque 350 (iohexol) IV ; Cumulative dose for multiple exams. ORAL CONTRAST: No oral contrast ingested. RADIATION DOSE: 11.69 CTDIvol (mGy) ; Combined studies - Thorax/Abdomen/Pelvis MEDICAL HISTORY : Carcinoma, lung. Chronic obstructive pulmonary disease. Pulmonary embolism. SURGICAL HISTORY : Appendectomy. Cholecystectomy.Infusaport. ENCOUNTER: Initial ACUITY: 1 day PAIN SCALE: 10/10 LOCATION: Left posterior lower chest. TECHNIQUE: Volumetric scanning of the abdomen and pelvis was performed. Using automated exposure control and ad justment of the mA and/or kV according to patient size, radiation dose was kept as low as reasonably achievable to obtain optimal diagnostic quality images. DICOM format image data is available electro nically for review and comparison. FINDINGS: LOWER LUNGS: Chronic basilar lung changes are noted. There is a chronic loculated right pleural effusion and under lying chronic obstructive ulnar changes. Segmental airspace disease is also evident at the left base. LIVER: Stable demonstrating small cysts but no suspicious space-occupying lesions. Post cholecystectomy clip s are noted. There is no evidence of biliary duct dilatation. SPLEEN: Normal size without lesion. PANCREAS: Within normal limits. KIDNEYS: Normal in size and shape. There is no mass, stone or hydronephrosis. Multiple simple cysts are again identified in the left kidney. ADRENAL GLANDS: Within normal limits. VASCULAR: There is no aortic aneurysm. BOWEL/MESENTERY: The stomach, small bowel, and colon demonstrate no acute abnormality. Fecal bolus in the mid sigmoid colon may represent a fecal impaction. There is no free intraperitoneal air or fluid. ABDOMINAL WALL: Within normal limits. RETROPERITONEUM: There is no lymphadenopathy. BLADDER: No wall thickening or mass. REPRODUCTIVE: Prostate gland is mildly enlarged. Penile prosthesis is noted in place. INGUINAL: There is no lymphadenopathy or hernia. MUSCULOSKELETAL: Degenerative changes without evidence of acute traumatic injury. CONCLUSION: 1. No evidence of acute bony or soft tissue trauma. 2. Chronic right pleural effusion 3. Segmental airspace disease left lower lobe. 4. Stable hepatic and left renal cysts. 5. Possible mid sigmoid fecal impaction. 6. Penile prosthesis identified. Cisco Gomes MD on April 29, 2017 at 7:55 Board Certified Radiologist. This report was verified electronically.
[2017-04-29] MEDS: REMOVE OLD PATCH T-DERMAL SCH (09:00)
[2017-04-29] MEDS: NICOTINE 21 MG/24 HR PATCH T-DERMAL SCH (09:09)
--- NOTE | 2017-04-29 10:00 | EKG ---
Date Performed: 04/29/2017 Time Performed: 08:41:42 PTAGE: 82 years EKG: Sinus rhythm LEFT ANTERIOR FASCICULAR BLOCK ABNORMAL ECG Compared to prior electrocardiogram, rate has increased PREVIOUS TRACING : 02/12/2017 08.59 DOCTOR: Jeovanny Riggs Interpretating Date/Time 04/29/2017 09:59:54
[2017-04-29] MEDS ORDERED: oxyCODONE/ACETAMINOPHEN 5 MG/325 MG TAB PO ONE (11:15)
[2017-04-29] MEDS ORDERED: oxyCODONE/ACETAMINOPHEN 5 MG/325 MG TAB PO PRN (13:00)
[2017-04-29] MEDS ORDERED: ONDANSETRON HCL 4 MG/2 ML VIAL IV PUSH PRN (13:00)
[2017-04-29] MEDS ORDERED: Post-op Orders (for Pharmacy) XX ONE (13:00)
[2017-04-29] MEDS ORDERED: NALOXONE HCL 0.4 MG/ML AMP IV PUSH PRN (13:00)
[2017-04-29] MEDS ORDERED: SODIUM CHLORIDE 0.9% FLUSH 10 ML FLUSH IV FLUSH PRN (13:00)
--- NOTE | 2017-04-29 13:30 | MH ---
cc: Xavi Myrick MD DATE OF ADMISSION: 04/29/2017 ADMITTING PHYSICIAN: Xavi Myrick MD ADMITTING DIAGNOSIS: Left chest trauma, small pneumothorax in the left chest, metastatic lung cancer. HISTORY OF PRESENT DISEASE: This 82-year-old gentleman was changing his clock at home yesterday and fell from a standing position onto his left side. Patient is complaining about left chest pain. He was seen in the [facility] and diagnosed with serial rib fractures, small pneumothorax on the left, and I was asked to admit the patient. Patient is now transferred to the main hospital considering the complexity of his additional comorbidities and problems. Patient will admitted to ICU overnight for observation. PAST MEDICAL HISTORY: That of adenocarcinoma of the right lung and pulmonary embolism. PAST SURGICAL HISTORY: That of cataract removal, cholecystectomy, appendectomy, penile implant, right lower lobectomy and node sampling in 2011 as well as shoulder repair on the right side. This patient was initially diagnosed with right lower lobe adenocarcinoma. He underwent resection. Then, he did well after that. A few years later, he developed right pleural effusion and was noted to have, at this point, stage IV disease. Patient receiving chemotherapy. SOCIAL HISTORY: Patient still smokes about a pack a day. He has a good family support. He is somewhat noncompliant with his therapy. He stopped taking Xarelto on his own. He is no more medications that can be found in the record. PHYSICAL EXAMINATION: GENERAL: Reveals an 82-year-old gentleman, slightly confused. HEENT: Normocephalic. No trauma to head. Pupils are equal, reactive. Extraocular muscles are intact. NECK: Bilateral carotid pulses, bilateral bruits, but no signs of trauma to the neck. CHEST: Bilateral breath sounds, advanced severe COPD with decreased breath sounds on auscultation and atrophy of chest wall musculature, consistent with pulmonary cachexia. ABDOMEN: Soft, no rebound, no guarding, no masses. On examination of the abdomen, while there are no masses, left upper abdomen is tender in the lower rib area and there is some air under the skin, consistent with contained subcutaneous emphysema and possible pneumothorax. EXTREMITIES: Bilateral femoral, popliteal as well as posterior tibial pulses. No signs of acute vascular deficit. IMPRESSION: Patient with isolated chest injury superimposed on severe chronic obstructive pulmonary disease with several rib fractures. Patient will be admitted and watched carefully. He will probably spend the night in the intensive care unit considering the age and underlying comorbidities. FINAL DIAGNOSIS: Multiple left rib fractures, chronic obstructive pulmonary disease, perhaps a tiny pneumothorax, small effusion. MD HENRY Zafar/TORITO , 12:52 PM , 01:30 PM
[2017-04-29] MEDS ORDERED: MORPHINE SULFATE 4 MG/ML INJ IV PUSH PRN (14:00)
[2017-04-29] MEDS ORDERED: RESP: ALBUTEROL 2.5 MG/IPRATROPIUM 0.5 MG NEB (PRN) NEB (14:00)
[2017-04-29] MEDS ORDERED: LACTULOSE SYRUP 20 GM/30 ML CUP PO PRN (14:00)
[2017-04-29] MEDS: RESP: ALBUTEROL 2.5 MG/IPRATROPIUM 0.5 MG NEB (SCH) NEB ×2 (14:56→21:41)
[2017-04-29] MEDS: POLYETHYLENE GLYCOL 17 GM PKG PO SCH (15:00)
[2017-04-29] MEDS ORDERED: LIDOCAINE HCL 5% PATCH T-DERMAL SCH (15:00)
[2017-04-29] MEDS ORDERED: XARE20TA PO (15:22)
--- NOTE | 2017-04-29 15:46 | PD.CONS ---
HPI Service [facility] Hospitalists Consult Requested By Dr. Myrick Reason for Consult Medical management Primary Care Physician Silvino Ny MD, PhD Diagnoses: History of Present Illness Mr. Martin is a an 82 y/o WM with metastatic adenocarcinoma of the right lung, pulmonary embolism diagnosed in 01/2017 and COPD on chronic supplemental O2. He was admitted on 04/29/17 after he had fallen off of a chair at home yesterday and found to have multiple left rib fractures. Pt was reportedly changing the time on his clock at home yesterday and fell from a chair onto his left side. Patient complained of left sided chest pain. He was seen in the [place] ER and CXR was negative for acute cardiopulmonary disease. Chest CT revealed advanced COPD with bronchiectasis and basilar fibrotic changes, no evidence of pneumothorax, multiple left rib fractures, chronic loculated right pleural effusion, and mild cardiomegaly. Pt was admitted to the trauma service and transferred to [facility] to be admitted to ICU overnight for observation. [facility], [facility] Hospitalist team was consulted to help manage the pts chronic medical issues. Pt was started on Xarelto in 01/2017 when he was found to have a PE in the right lower lobe. He reportedly stopped taking Xarelto on his own about 2 weeks ago on his own because he saw a commercial on TV about it being in a class action lawsuit. He has an appt with Dr. Chicas this coming week. Review of Systems Constitutional: DENIES: Fever, Chills Eyes: DENIES: Vision loss Ears, nose, mouth, throat: DENIES: Throat pain, Running Nose, Epistaxis Respiratory: COMPLAINS OF: Cough (chronic), Sputum production (chronic) Cardiovascular: COMPLAINS OF: Chest pain (left sided rib pain), DENIES: Dyspnea on Exertion, Lower Extremity Edema Gastrointestinal: DENIES: Abdominal pain, Diarrhea, Nausea, Vomiting Genitourinary: DENIES: Hematuria, Dysuria Musculoskeletal: DENIES: Neck pain Integumentary: DENIES: Rash Neurologic: DENIES: Headache Psychiatric: DENIES: Confusion Past Family Social History Past Medical History 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 Pt follows with Dr. Chicas and is on palliative chemo with Avastin. PE, diagnosed in 01/2017 COPD on chronic supplemental O2 Tobacco abuse Chemo induced neuropathy Anxiety Hx of nephrolithiasis Past Surgical History Infuse-a- port placement Cataract removal Cholecystectomy Appendectomy Penile implant Right lower lobectomy and node sampling in 2012 Right shoulder surgery Reported Medications -Xarelto 20 Mg PO DAILY (Pt stopped taking 2 weeks ago) -Percocet 5-325 mg PO Q6H PRN -Cymbalta DR 20 Mg PO DAILY ?Prednisone 10 Mg PO DAILY -Ventolin Hfa 18 GM Inh 90 Mcg/Act Aer 1 Puff INH Q4H PRN -Spiriva Handihaler (Tiotropium Inh) 18 Mcg INH DAILY -Alprazolam 0.25 Mg PO TID PRN Allergies: Coded Allergies: No Known Allergies (Verified Adverse Reaction, Unknown, 04/29/17) Family History Noncontributory Social History Patient still smokes 3ppd since age 15. Denies any alcohol or illicit drug use Physical Exam Vital Signs Vital Signs Date Time Temp Pulse Resp B/P (MAP) Pulse Ox O2 Delivery O2 Flow Rate FiO2 04/29/17 14:58 93 Nasal Cannula 3.00 04/29/17 10:11 04/29/17 09:47 88 16 116/52 (73) 96 Nasal Cannula 3.00 04/29/17 08:48 102 16 112/66 (81) 93 Nasal Cannula 3.00 04/29/17 08:30 3.00 04/29/17 07:27 88 16 138/73 (94) 93 Nasal Cannula 2.50 04/29/17 07:05 Nasal Cannula 2.50 04/29/17 06:52 Nasal Cannula 2.50 04/29/17 04:57 97.6 81 28 159/86 (110) 04/29/17 04:57 20 91 Nasal Cannula 2.00 Physical Exam GENERAL: This is an elderly male, appears to be in pain. SKIN: No rashes, ecchymoses or lesions. Cool and dry. HEENT: Atraumatic. Normocephalic. No temporal or scalp tenderness. No scleral icterus. Airway patent. NECK: Trachea midline, supple, nontender. CARDIO: Regular. RESP: Rhonchorus/wet breath sounds bilaterally. No wheezing. No crepitus felt on the left chest wall ABD: +BS, soft, non-tender, nondistended. EXT: Extremities without clubbing, cyanosis, or edema. NEURO: Awake and alert. Motor and sensory grossly within normal limits. Normal speech. Laboratory Laboratory Tests Test 04/29/17 06:35 04/29/17 07:37 White Blood Count 10.8 Red Blood Count 4.82 Hemoglobin 15.3 Hematocrit 45.6 Mean Corpuscular Volume 94.7 Mean Corpuscular Hemoglobin 31.9 Mean Corpuscular Hemoglobin Concent 33.6 Red Cell Distribution Width 14.0 Platelet Count 215 Mean Platelet Volume 7.2 Neutrophils (%) (Auto) 78.3 Lymphocytes (%) (Auto) 12.1 Monocytes (%) (Auto) 7.1 Eosinophils (%) (Auto) 0.8 Basophils (%) (Auto) 1.7 Neutrophils # (Auto) 8.4 Lymphocytes # (Auto) 1.3 Monocytes # (Auto) 0.8 Eosinophils # (Auto) 0.1 Basophils # (Auto) 0.2 CBC Comment AUTO DIFF Differential Comment AUTO DIFF CONFIRMED Platelet Estimate NORMAL Platelet Morphology Comment NORMAL Prothrombin Time 9.6 Prothromb Time International Ratio 0.9 Activated Partial Thromboplast Time 24.7 Blood Urea Nitrogen 14 Creatinine 0.84 Random Glucose 103 Calcium Level 8.3 Sodium Level 137 Potassium Level 4.2 Chloride Level 99 Carbon Dioxide Level 29.9 Anion Gap 8 Estimat Glomerular Filtration Rate 88 Urine Collection Type CLEAN CATCH Urine Color YELLOW Urine Turbidity CLEAR Urine pH 5.5 Urine Specific [place] 1.025 Urine Protein 30 Urine Glucose (UA) NEG Urine Ketones NEG Urine Occult Blood TRACE Urine Nitrite POS Urine Bilirubin NEG Urine Urobilinogen 0.2 Urine Leukocyte Esterase NEG Urine RBC 0-3 Urine Squamous Epithelial Cells 0-5 Urine Amorphous Sediment MOD Microscopic Urinalysis Comment CULT NOT INDICATED Urine Collection Time 0737 Result Diagram: 04/29/17 0635 04/29/17 0635 Imaging Last Impressions Head CT 04/29/17 0000 Signed Impressions: Service Date/Time: Saturday, April 29, 2017 07:19 - CONCLUSION: No acute disease. No evidence of acute infarct, hemorrhage, mass or edema. Cisco Gomes MD Chest X-Ray 04/29/17 0000 Signed Impressions: Service Date/Time: Saturday, April 29, 2017 05:04 - CONCLUSION: Chronic changes as above. No acute cardiopulmonary disease demonstrated. Tre Rangel MD Chest CT 04/29/17 0000 Signed Impressions: Service Date/Time: Saturday, April 29, 2017 07:25 - CONCLUSION: 1. Advanced COPD with bronchiectasis and basilar fibrotic changes.. 2. No evidence of pneumothorax. 3. Chronic loculated right pleural effusion. 4. Multiple left rib fractures 5. Mild cardiomegaly. Cisco Gomes MD Cervical Spine CT 04/29/17 0000 Signed Impressions: Service Date/Time: Saturday, April 29, 2017 07:19 - CONCLUSION: 1. No evidence of acute fracture or traumatic listhesis. 2. Status post intracervical fusion at C5-6. 3. Degenerative disc disease with mild spondylosis. Cisco Gomes MD Abdomen/Pelvis CT 04/29/17 0000 Signed Impressions: Service Date/Time: Saturday, April 29, 2017 07:25 - CONCLUSION: 1. No evidence of acute bony or soft tissue trauma. 2. Chronic right pleural effusion 3. Segmental airspace disease left lower lobe. 4. Stable hepatic and left renal cysts. 5. Possible mid sigmoid fecal impaction. 6. Penile prosthesis identified. Cisco Gomes MD Assessment and Plan Problem List: (1) Left rib fracture ICD Codes: S22.32XA - Fracture of one rib, left side, initial encounter for closed fracture Status: Acute Plan: - Pt is an 82 y/o WM with metastatic adenocarcinoma of the right lung, pulmonary embolism diagnosed in 01/2017 and COPD on chronic supplemental O2. - He was admitted on 04/29/17 after he had fallen off of a chair at home yesterday and found to have multiple left sided rib fractures. - Chest CT revealed advanced COPD with bronchiectasis and basilar fibrotic changes, no evidence of pneumothorax, multiple left rib fractures, chronic loculated right pleural effusion, and mild cardiomegaly. - Pt was admitted to the trauma service and transferred to [facility] to be admitted to ICU overnight for observation given his comorbid medical issues. - Pain control PRN to allow for continued deep breathing and pulmonary toileting - CXR in AM ordered - IS - Acapella - Supportive care - DVT prophylaxis with Lovenox (2) COPD (chronic obstructive pulmonary disease) ICD Codes: J44.9 - Chronic obstructive pulmonary disease, unspecified Status: Chronic Plan: - Pt with severe COPD and continues to smoke 3ppd - Duonebs Q4H WA ordered and Q2H PRN - Spiriva continued - Supplemental O2 - Monitor closely for any signs of distress - Encouraged deep breathing/pulmonary toileting (3) Pulmonary embolism ICD Codes: I26.99 - Other pulmonary embolism without acute cor pulmonale Plan: - Pt was started on Xarelto in 01/2017 when he was found to have a PE in the right lower lobe. - He reportedly stopped taking Xarelto on his own about 2 weeks ago on his own because he saw a commercial on TV about it being in a class action lawsuit. He has an appt with Dr. Chicas this coming week. - Will discuss the case with Dr. Chicas tomorrow for his recommendations on continuing the Xarelto per pts request. 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 - Pt follows with Dr. Chicas and is on palliative chemo with Avastin. Problem Qualifiers (1) Left rib fracture: Qualified Codes: S22.42XA - Multiple fractures of ribs, left side, initial encounter for closed fracture Gissel Moses Apr 29, 2017 15:45
[2017-04-29] MEDS: ENOXAPARIN SODIUM 40 MG/0.4 ML SYRINGE SQ SCH (15:56)
[2017-04-29] MEDS: METHOCARBAMOL 500 MG TAB PO SCH ×2 (15:56→20:00)
[2017-04-29] MEDS: ACETAMINOPHEN 1000 MG/100 ML 100 ML IV SCH ×2 (15:56→20:00)
[2017-04-29] MEDS: LIDOCAINE HCL 5% PATCH T-DERMAL SCH (18:40)
[2017-04-29] MEDS: FAMOTIDINE 20 MG TAB PO SCH ×2 (19:58)
[2017-04-29] MEDS: DOCUSATE SODIUM 50 MG/SENNA 8.6 MG TAB PO SCH (19:58)
[2017-04-29] MEDS: SODIUM CHLORIDE 0.9% FLUSH 10 ML FLUSH IV FLUSH SCH (19:59)
[2017-04-30] VITALS (18 sets, daily range): BP systolic 136–184; BP diastolic 62–89; PULSE 74–117; RESP 16–28; TEMP 97.9–98.5; O2SAT 88–98
--- NOTE | 2017-04-30 01:20 | RADRPT ---
EXAM DATE/TIME: 04/30/2017 00:56 [facility] COMPARISON: CHEST SINGLE AP, April 29, 2017, 5:04. INDICATIONS : Short of breath. MEDICAL HISTORY : Carcinoma, lung. Hypercholesterolemia. Chronic obstructive pulmonary disease. SURGICAL HISTORY : Fusion, cervical. Cholecystectomy.Right lower lobectomy. ENCOUNTER: Subsequent ACUITY: 2 days PAIN SCORE: 0/10 LOCATION: Bilateral chest FINDINGS: A single portable frontal view the chest shows new infiltrate within the left lung base. Stable scarr ing within the right lung base and stable chronic interstitial changes. Heart is normal in size. No e ffusions. Power port overlies the right chest. Cervical spinal fusion plate. CONCLUSION: New left lower lobe infiltrate. Chemo Durand Jr., MD on April 30, 2017 at 1:17 Board Certified Radiologist. This report was verified electronically.
[2017-04-30] MEDS: ACETAMINOPHEN 1000 MG/100 ML 100 ML IV SCH ×2 (02:24→08:00)
[2017-04-30] MEDS: REMOVE OLD LIDOCAINE PATCH T-DERMAL SCH (04:00)
[2017-04-30 04:39] LABS: AUTOMATED NEUTROPHIL # 5.8 TH/MM3 (1.8-7.7); BASOPHIL % 0.6 % (0.0-2.0); EOSINOPHIL # 0.1 TH/MM3 (0-0.4); EOSINOPHIL % 0.9 % (0.0-4.0); HEMOGLOBIN 14.8 GM/DL (13.0-17.0); LYMPH % 18.9 % (9.0-44.0); LYMPHOCYTE # 1.5 TH/MM3 (1.0-4.8); MEAN CORPUSCULAR HEMOGLOBIN 33.8 PG (27.0-34.0); MEAN CORPUSCULAR HGB CONC 35.3 % (32.0-36.0); MEAN PLATELET VOLUME 7.3 FL (7.0-11.0); MONO % 7.2 % (0.0-8.0); MONOCYTE # 0.6 TH/MM3 (0-0.9); NEUT % 72.4 % (16.0-70.0); PLATELET COUNT 180 TH/MM3 (150-450); RED BLOOD COUNT 4.38 MIL/MM3 (4.50-5.90); RED CELL DISTRIBUTION WIDTH 14.7 % (11.6-17.2)
[2017-04-30] MEDS: METHOCARBAMOL 500 MG TAB PO SCH ×3 (05:20→20:26)
[2017-04-30] MEDS: RESP: ALBUTEROL 2.5 MG/IPRATROPIUM 0.5 MG NEB (SCH) NEB ×4 (08:25→20:06)
[2017-04-30] MEDS: POLYETHYLENE GLYCOL 17 GM PKG PO SCH (08:25)
[2017-04-30] MEDS: NICOTINE 21 MG/24 HR PATCH T-DERMAL SCH (08:25)
[2017-04-30] MEDS: FAMOTIDINE 20 MG TAB PO SCH ×4 (08:25→20:26)
[2017-04-30] MEDS: MORPHINE SULFATE 2 MG/ML INJ IV PUSH PRN ×3 (08:25→20:34)
[2017-04-30] MEDS: DOCUSATE SODIUM 50 MG/SENNA 8.6 MG TAB PO SCH ×2 (08:25→20:26)
[2017-04-30] MEDS: DULoxetine HCl DR 20 MG CAP PO SCH (08:25)
[2017-04-30] MEDS: REMOVE OLD PATCH T-DERMAL SCH (09:00)
[2017-04-30] MEDS: SODIUM CHLORIDE 0.9% FLUSH 10 ML FLUSH IV FLUSH SCH ×2 (09:00→20:26)
[2017-04-30] MEDS: GABAPENTIN 300 MG CAP PO SCH ×2 (13:04→18:00)
[2017-04-30] MEDS: ENOXAPARIN SODIUM 40 MG/0.4 ML SYRINGE SQ SCH (15:00)
[2017-04-30] MEDS: LIDOCAINE HCL 5% PATCH T-DERMAL SCH (16:00)
--- NOTE | 2017-04-30 18:24 | HHI.CCPN ---
Subjective Brief History This 82-year-old gentleman was changing his clock at home yesterday and fell from a standing position onto his left side. Patient is complaining about left chest pain. He was seen in the [place] ER and diagnosed with serial rib fractures, small pneumothorax on the left, and I was asked to admit the patient. Patient is now transferred to the main hospital considering the complexity of his additional comorbidities and problems. Patient will admitted to ICU overnight for observation. This patient was initially diagnosed with right lower lobe adenocarcinoma. He underwent resection. Then, he did well after that. A few years later, he developed right pleural effusion and was noted to have, at this point, stage IV adenocarcinoma of the lung. Patient current receiving chemotherapy. 24 Hour Review/Hospital Course For last 24 hours patient has been stable He is awake alert and oriented Tender over the left chest in face of fractures Bilateral good breath sounds and good inspiratory effort but poor oxygen exchange and poor PO2 FiO2 gradient In the face of COPD lung carcinoma and now pulmonary contusion with rib fractures this patient's respiratory status is quite precarious and he may end up on the ventilator for short period of time however right now he is doing well in every effort should be made to avoid patient ending intubated. Hemodynamically patient is stable Plan Consult pulmonary/oncology Patient is supposed to get next dose of chemotherapy on Sunday Objective Vital Signs Date Time Temp Pulse Resp B/P (MAP) Pulse Ox O2 Delivery O2 Flow Rate FiO2 04/30/17 10:00 92 04/30/17 08:29 92 Nasal Cannula 6.00 04/30/17 08:00 98.0 22 136/77 (96) Intake and Output 04/30/17 04/30/17 05/01/17 08:00 16:00 00:00 Intake Total 670 ml 100 ml Output Total 1200 ml Balance -530 ml 100 ml Result Diagram: 04/30/17 0353 04/29/17 0635 Imaging Last 24 hours Impressions Chest X-Ray 04/30/17 0600 Signed Impressions: Service Date/Time: Sunday, April 30, 2017 00:56 - CONCLUSION: New left lower lobe infiltrate. Chemo Durand Jr., MD Assessment and Plan Attestation Critical care time 32 Xavi Myrick MD Apr 30, 2017 18:24
--- NOTE | 2017-04-30 19:48 | HHI.PR ---
Subjective Remarks Pt is now requiring simple mask with FiO2 60% Pt agitated and nursing staff reports that the pt has been struggling with significant pain with inspiration but that the pain medication is causing confusion and the pts daughter was concerned about the confusion Objective Vitals Vital Signs Date Time Temp Pulse Resp B/P (MAP) Pulse Ox O2 Delivery O2 Flow Rate FiO2 04/30/17 16:00 98.0 100 18 165/78 (107) 92 04/30/17 12:00 98.0 94 28 169/78 (108) 97 04/30/17 10:00 92 04/30/17 08:29 92 Nasal Cannula 6.00 04/30/17 08:00 98.4 88 24 147/69 (95) 88 04/30/17 08:00 95 04/30/17 08:00 98.0 95 22 136/77 (96) 94 04/30/17 07:00 Nasal Cannula 4.00 04/30/17 06:00 82 04/30/17 05:00 78 20 136/62 (86) 92 04/30/17 04:00 76 04/30/17 02:00 74 04/30/17 00:57 97.9 74 16 136/63 (87) 92 04/30/17 00:36 97.9 74 16 136/63 (87) 92 04/30/17 00:00 74 04/29/17 22:00 72 04/29/17 21:46 96 Nasal Cannula 3.00 04/29/17 21:00 72 17 136/63 (87) 95 04/29/17 20:00 74 04/30/17 04/30/17 05/01/17 14:59 22:59 06:59 Intake Total 100 ml 60 ml Output Total 600 ml Balance 100 ml -540 ml Intake Oral 60 ml IV Total 100 ml Output Urine Total 600 ml Result Diagram: 04/30/17 0353 04/29/17 0635 Other Results Laboratory Tests Test 04/29/17 06:35 04/29/17 07:37 04/30/17 03:53 White Blood Count 10.8 TH/MM3 8.0 TH/MM3 Red Blood Count 4.82 MIL/MM3 4.38 MIL/MM3 Hemoglobin 15.3 GM/DL 14.8 GM/DL Hematocrit 45.6 % 42.0 % Mean Corpuscular Volume 94.7 FL 96.0 FL Mean Corpuscular Hemoglobin 31.9 PG 33.8 PG Mean Corpuscular Hemoglobin Concent 33.6 % 35.3 % Red Cell Distribution Width 14.0 % 14.7 % Platelet Count 215 TH/MM3 180 TH/MM3 Mean Platelet Volume 7.2 FL 7.3 FL Neutrophils (%) (Auto) 78.3 % 72.4 % Lymphocytes (%) (Auto) 12.1 % 18.9 % Monocytes (%) (Auto) 7.1 % 7.2 % Eosinophils (%) (Auto) 0.8 % 0.9 % Basophils (%) (Auto) 1.7 % 0.6 % Neutrophils # (Auto) 8.4 TH/MM3 5.8 TH/MM3 Lymphocytes # (Auto) 1.3 TH/MM3 1.5 TH/MM3 Monocytes # (Auto) 0.8 TH/MM3 0.6 TH/MM3 Eosinophils # (Auto) 0.1 TH/MM3 0.1 TH/MM3 Basophils # (Auto) 0.2 TH/MM3 0.0 TH/MM3 CBC Comment AUTO DIFF DIFF FINAL Differential Comment AUTO DIFF CONFIRMED Platelet Estimate NORMAL Platelet Morphology Comment NORMAL Prothrombin Time 9.6 SEC Prothromb Time International Ratio 0.9 RATIO Activated Partial Thromboplast Time 24.7 SEC Blood Urea Nitrogen 14 MG/DL Creatinine 0.84 MG/DL Random Glucose 103 MG/DL Calcium Level 8.3 MG/DL Sodium Level 137 MEQ/L Potassium Level 4.2 MEQ/L Chloride Level 99 MEQ/L Carbon Dioxide Level 29.9 MEQ/L Anion Gap 8 MEQ/L Estimat Glomerular Filtration Rate 88 ML/MIN Urine Collection Type CLEAN CATCH Urine Color YELLOW Urine Turbidity CLEAR Urine pH 5.5 Urine Specific [place] 1.025 Urine Protein 30 mg/dL Urine Glucose (UA) NEG mg/dL Urine Ketones NEG mg/dL Urine Occult Blood TRACE Urine Nitrite POS Urine Bilirubin NEG Urine Urobilinogen 0.2 MG/DL Urine Leukocyte Esterase NEG Urine RBC 0-3 /hpf Urine Squamous Epithelial Cells 0-5 /hpf Urine Amorphous Sediment MOD Microscopic Urinalysis Comment CULT NOT INDICATED Urine Collection Time 0737 Imaging Last Impressions Chest X-Ray 04/30/17 0600 Signed Impressions: Service Date/Time: Sunday, April 30, 2017 00:56 - CONCLUSION: New left lower lobe infiltrate. Chemo Durand Jr., MD Head CT 04/29/17 0000 Signed Impressions: Service Date/Time: Saturday, April 29, 2017 07:19 - CONCLUSION: No acute disease. No evidence of acute infarct, hemorrhage, mass or edema. Cisco Gomes MD Chest CT 04/29/17 0000 Signed Impressions: Service Date/Time: Saturday, April 29, 2017 07:25 - CONCLUSION: 1. Advanced COPD with bronchiectasis and basilar fibrotic changes.. 2. No evidence of pneumothorax. 3. Chronic loculated right pleural effusion. 4. Multiple left rib fractures 5. Mild cardiomegaly. Cisco Gomes MD Cervical Spine CT 04/29/17 0000 Signed Impressions: Service Date/Time: Saturday, April 29, 2017 07:19 - CONCLUSION: 1. No evidence of acute fracture or traumatic listhesis. 2. Status post intracervical fusion at C5-6. 3. Degenerative disc disease with mild spondylosis. Csico Gmoes MD Abdomen/Pelvis CT 04/29/17 0000 Signed Impressions: Service Date/Time: Saturday, April 29, 2017 07:25 - CONCLUSION: 1. No evidence of acute bony or soft tissue trauma. 2. Chronic right pleural effusion 3. Segmental airspace disease left lower lobe. 4. Stable hepatic and left renal cysts. 5. Possible mid sigmoid fecal impaction. 6. Penile prosthesis identified. Cisco Gomes MD Objective Remarks General: Lethargic, lying in bed on simple mask with FiO2 60% Chest: Coarse breath sounds throughout Cardiac: Tachy Abd: +BS, soft ND/NT Ext: No edema A/P Problem List: (1) Left rib fracture ICD Codes: S22.32XA - Fracture of one rib, left side, initial encounter for closed fracture Status: Acute Plan: - Pt is an 82 y/o WM with metastatic adenocarcinoma of the right lung, pulmonary embolism diagnosed in 01/2017 and COPD on chronic supplemental O2. - He was admitted on 04/29/17 after he had fallen off of a chair at home yesterday and found to have multiple left sided rib fractures. - Chest CT revealed advanced COPD with bronchiectasis and basilar fibrotic changes, no evidence of pneumothorax, multiple left rib fractures, chronic loculated right pleural effusion, and mild cardiomegaly. - Pt was admitted to the trauma service and transferred to [facility] to be admitted to ICU for observation given his comorbid medical issues. - Pain control PRN to allow for continued deep breathing and pulmonary toileting - CXR (04/30) --> New left lower lobe infiltrate. - Pt with increased O2 requirements and increased lethargy and some confusion today - Pt is a full code - Pt high risk for respiratory decline and need for intubation - We will meet with the pts family tomorrow at 12:00PM to update family and discuss continued aggressive care vs. other. - Cont. IS and Acapella - CXR in AM - Supportive care - DVT prophylaxis with Lovenox (2) COPD (chronic obstructive pulmonary disease) ICD Codes: J44.9 - Chronic obstructive pulmonary disease, unspecified Status: Chronic Plan: - See above - Pt with severe COPD and continues to smoke 3ppd - Duonebs Q4H WA ordered and Q2H PRN - Spiriva continued - Supplemental O2 - Encouraged deep breathing/pulmonary toileting (3) Pulmonary embolism ICD Codes: I26.99 - Other pulmonary embolism without acute cor pulmonale Plan: - Pt was started on Xarelto in 01/2017 when he was found to have a PE in the right lower lobe. - He reportedly stopped taking Xarelto on his own about 2 weeks ago on his own because he saw a commercial on TV about it being in a class action lawsuit. He has an appt with Dr. Chicas this coming week. - Will discuss the case with Dr. Chicas tomorrow for his recommendations on continuing the Xarelto per pts request. 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 - Pt follows with Dr. Chicas and is on palliative chemo with Avastin. Assessment and Plan Patient examined. Assessment and plan formulated with Gissel Moses PA-C. I agree with the above. Consult Palliative Care. Hospice would be appropriate. Problem Qualifiers (1) Left rib fracture: Qualified Codes: S22.42XA - Multiple fractures of ribs, left side, initial encounter for closed fracture (2) Pulmonary embolism: Gissel Moses Apr 30, 2017 19:48 Kavon De Leon DO May 03, 2017 15:14
[2017-04-30] MEDS: TIOTROPIUM BROMIDE 18 MCG INH INH SCH (20:58)
[2017-04-30] MEDS ORDERED: LABETALOL HCL 100 MG/20 ML VIAL IV PUSH PRN (22:00)
[2017-04-30] MEDS: HALOPERIDOL LACTATE 5 MG/ML AMP IV PRN (22:01)
[2017-05-01] VITALS (14 sets, daily range): BP systolic 144–158; BP diastolic 71–81; PULSE 84–110; RESP 17–31; TEMP 97.9–98.5; O2SAT 95–100
--- NOTE | 2017-05-01 00:22 | RADRPT ---
EXAM DATE/TIME: 04/30/2017 23:59 [facility] COMPARISON: CHEST SINGLE AP, April 30, 2017, 0:56. INDICATIONS : Respiratory distress. MEDICAL HISTORY : Carcinoma, lung. Hypercholesterolemia. Chronic obstructive pulmonary disease. SURGICAL HISTORY : Fusion, cervical. Cholecystectomy.Right lower lobectomy. ENCOUNTER: Subsequent ACUITY: 3 days PAIN SCORE: Non-responsive. LOCATION: Bilateral chest FINDINGS: Single portable frontal view of the chest shows bibasilar parenchymal consolidations which are slight ly more pronounced than the prior study. Heart is at the upper limits of normal in terms of size. No discrete effusions. Port-A-Cath on the right. Spinal fusion plate at the cervical spine. CONCLUSION: Bibasilar infiltrates slightly more pronounced. Chemo Durand Jr., MD on May 01, 2017 at 0:20 Board Certified Radiologist. This report was verified electronically.
--- NOTE | 2017-05-01 00:37 | RADRPT ---
EXAM DATE/TIME: 05/01/2017 00:17 [facility] COMPARISON: CT BRAIN W/O CONTRAST, April 29, 2017, 7:19. INDICATIONS : Altered mental status; patient fell 2 days ago. RADIATION DOSE: 34.60 CTDIvol (mGy) MEDICAL HISTORY : Carcinoma, lung. Cardiovascular disease Chronic obstructive pulmonary disease. SURGICAL HISTORY : Appendectomy. Cholecystectomy. ENCOUNTER: Initial ACUITY: 2 days PAIN SCALE: Non-responsive LOCATION: cranial TECHNIQUE: Multiple contiguous axial images were obtained of the head. Using automated exposure control and adj ustment of the mA and/or kV according to patient size, radiation dose was kept as low as reasonably a chievable to obtain optimal diagnostic quality images. DICOM format image data is available electro nically for review and comparison. FINDINGS: CEREBRUM: The ventricles are normal for age. No evidence of midline shift, mass lesion, hemorrhage or acute in farction. No extra-axial fluid collections are seen. POSTERIOR FOSSA: The cerebellum and brainstem are intact. The 4th ventricle is midline. The cerebellopontine angle i s unremarkable. EXTRACRANIAL: The visualized portion of the orbits is intact. SKULL: The calvaria is intact. No evidence of skull fracture. CONCLUSION: No acute disease. Chemo Durand Jr., MD on May 01, 2017 at 0:34 Board Certified Radiologist. This report was verified electronically.
--- NOTE | 2017-05-01 00:59 | PD.CONS ---
[facility] Service Critical Care Medicine Consult Requested By Dr. Krishna. 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 He presented to [facility] ED after a fall from a chair onto his left side. He was found to have multiple rib fractures with nondisplaced rib fractures of left eighth-10th ribs and chronic loculated right pleural effusion. CT brain/Cspine/ Abd/pelvis were negative for acute abnormalities. He was admitted to [facility] under the care of the trauma service. [facility] is consulted today by Dr. Krishna after RN notified him that patient was agitated and confused. He was initially on NC upon admission but has been on PNR this evening. He has a weak cough. Family reports that he was on xarelto for his PE but he stopped taking it 2 weeks ago due to commercial advertising class action lawsuit. Review of Systems ROS Limitations: Clinical Condition Past Family Social History Allergies: Coded Allergies: No Known Allergies (Verified Allergy, Unknown, 04/30/17) Past Medical History Adenocarcinoma right lower lobe of lung diagnosed in January 2012. Barry underwent right lower lobectomy. He developed a right pleural effusion and in November 2014 thoracentesis cytology demonstrated malignant cells. He was initiated on palliative chemotherapy with carboplatin/pemetrexed/avastin. Due to poor tolerance, transitioned to single agent maintenance and remains on Avastin. Recurrent right pleural effusion COPD Bronchiectasis Hyperlipidemia Tobacco abuse Pulmonary embolism January 2017 on xarelto Hard of hearing Depression Anxiety Past Surgical History Right lower lobectomy with hilar and mediastinal lymph node sampling January 2012 Right shoulder surgery Appendectomy Cataract removal Cholecystectomy Penile implant Reported Medications Spiriva 18 g inhaled daily Albuterol puffs every 4 hours as needed Xarelto 20 mg by mouth daily (patient reportedly discontinued 2 weeks ago) Family History Parents are . Social History History of tobacco abuse, smokes a pack cigarettes per day for 57 years. Occasional alcohol use, approximately 1 day per week He has prior asbestos exposure. Physical Exam Vital Signs Vital Signs Date Time Temp Pulse Resp B/P (MAP) Pulse Ox O2 Delivery O2 Flow Rate FiO2 3/12/18 22:00 117 04/30/17 20:30 160/89 (112) 04/30/17 20:11 98 Partial Rebreather 10.00 04/30/17 20:00 101 04/30/17 20:00 98.5 103 22 184/88 (120) 94 04/30/17 19:30 94 Partial Non-Rebreather 9.00 04/30/17 18:00 100 04/30/17 16:00 98.0 100 18 165/78 (107) 92 04/30/17 16:00 98.5 94 22 175/81 (112) 88 04/30/17 16:00 98.4 96 22 175/81 (112) 88 04/30/17 16:00 100 04/30/17 16:00 98.5 100 22 165/78 (107) 92 04/30/17 14:00 90 04/30/17 12:00 92 04/30/17 12:00 98.0 94 28 169/78 (108) 97 04/30/17 10:00 92 04/30/17 08:29 92 Nasal Cannula 6.00 04/30/17 08:00 98.4 88 24 147/69 (95) 88 04/30/17 08:00 95 04/30/17 08:00 98.0 95 22 136/77 (96) 94 04/30/17 07:00 Nasal Cannula 4.00 04/30/17 06:00 82 04/30/17 05:00 78 20 136/62 (86) 92 04/30/17 04:00 76 04/30/17 02:00 74 Physical Exam GENERAL: Elderly male who is laying in ISC bed. SKIN: Warm and dry, adequately perfused. HEAD: Atraumatic. Normocephalic. EYES: Pupils equal and round, 4 mm and reactive to 3 mm bilaterally. No scleral icterus. No injection or drainage. ENT: No nasal bleeding or discharge. Mucous membranes pink and moist. NECK: Trachea midline. No JVD. CARDIOVASCULAR: Regular rate and rhythm. No murmurs rubs or gallops. RESPIRATORY: Mildly tachypneic but without accessory muscle use. Rhonchorous breath sounds bilaterally with transmitted upper airway sounds. Very weak cough. No wheeze. On partial nonrebreather. GASTROINTESTINAL: Abdomen soft, non-tender, nondistended. Bowel sounds present. MUSCULOSKELETAL: Extremities without clubbing, cyanosis, or edema. No obvious deformities. NEUROLOGICAL: Hearing aid in place. He arouses to voice, makes eye contact. Oriented to self and year but not place. Moves all extremities spontaneously without apparent focal deficit. Laboratory Laboratory Tests Test 04/30/17 03:53 04/30/17 22:00 White Blood Count 8.0 Red Blood Count 4.38 Hemoglobin 14.8 Hematocrit 42.0 Mean Corpuscular Volume 96.0 Mean Corpuscular Hemoglobin 33.8 Mean Corpuscular Hemoglobin Concent 35.3 Red Cell Distribution Width 14.7 Platelet Count 180 Mean Platelet Volume 7.3 Neutrophils (%) (Auto) 72.4 Lymphocytes (%) (Auto) 18.9 Monocytes (%) (Auto) 7.2 Eosinophils (%) (Auto) 0.9 Basophils (%) (Auto) 0.6 Neutrophils # (Auto) 5.8 Lymphocytes # (Auto) 1.5 Monocytes # (Auto) 0.6 Eosinophils # (Auto) 0.1 Basophils # (Auto) 0.0 CBC Comment DIFF FINAL Differential Comment Blood Gas Puncture Site RT RADIAL Blood Gas Patient Temperature 98.6 Blood Gas HCO3 24 Blood Gas Base Excess -0.4 Blood Gas Oxygen Saturation 91 Arterial Blood pH 7.39 Arterial Blood Partial Pressure CO2 40 Arterial Blood Partial Pressure O2 68 Arterial Blood Oxygen Content 20.8 Arterial Blood Carboxyhemoglobin 1.8 Arterial Blood Methemoglobin 1.0 Blood Gas Hemoglobin 16.2 Oxygen Delivery Device PRB Blood Gas Liter Flow 10 Result Diagram: 04/30/17 0353 04/29/17 0635 Assessment and Plan Problem List: (1) Multiple fractures of ribs of left side ICD Code: S22.42XA - Multiple fractures of ribs, left side, initial encounter for closed fracture (2) 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 ICD Code: C79.9 - Secondary malignant neoplasm of unspecified site; C34.91 - Malignant neoplasm of unspecified part of right bronchus or lung (3) Pulmonary embolism ICD Code: I26.99 - Other pulmonary embolism without acute cor pulmonale (4) COPD (chronic obstructive pulmonary disease) ICD Code: J44.9 - Chronic obstructive pulmonary disease, unspecified Status: Chronic Assessment and Plan NEURO: Agitated delirium Depression Pain secondary to multiple rib fractures Anxiety Haldol 2 mg IV every 4 hours as needed for agitated delirium Repeated head CT to evaluate for delayed hemorrhage (though apparently patient was not taking his anticoagulation). CT negative. ABG -->No hypercapnea and PaO2 adequate on PNR. Continue per trauma surgery: Cymbalta 20 mill grams by mouth daily, gabapentin 3 and mill grams by mouth 3 times a day, Robaxin 500 mg by mouth every 8 hours Tylenol prn . Oxycodone 5 mg every 4 hours when necessary pain. Morphine as needed for breakthrough pain. Home meds Xanax 0.25 mg by mouth 3 times a day has been on hold RESP: Multiple L rib fractures 8- COPD Bronchiectasis Right lower lobe subsegmental PE 01/2017 Tobacco abuse DuoNeb every 4 hours with EZPAP every 4 hours. Acapella. Albuterol every 2 hours as needed. IS q1 hour. On Spiriva 18 g inhaled daily Budesonide 0.5 mg neb every 12 hours. Avoid solumedrol at this point as he is not wheezing and this may exacerbate delirium. Discuss with family later in am to determine if prednisone is t a chronic med. NT suction now but avoid suctioning when on full anticoagulation due to risk of epistaxis. CXR with worsening bilateral opacities. Known lower lung bronchiectasis. Zosyn as per below. He is currently following commands and protecting airway. Howevere he has weak cough and high risk for intubation. Family would want intubation if needed. CV: Hyperlipidemia ?no longer on statin therapy GI: Regular diet. FEN/RENAL: Voiding. Creatinine normal. Monitor electrolytes and replace as indicated per ICU electrolyte replacement protocol. ID: Bronchiectasis ?Community acquired pneumonia v. aspiration. CXR with worsening bibasilar opacities and with worsening respiratory status. Send blood culture. Patient unable to produce sputum. Zosyn 3.35 gram IV q6 hours. HEME: Right lower lobe subsegmental PE diagnosed 02/12/17 Patient has been on Xarelto but he discontinued ~ 2weeks ago. Hospitalist planned to discuss with Dr. Chicas regarding his recommendations. Checked CT brain which remains negative and CXR stable without apparent hemothorax.Will cover for now with lovenox 60 subcut q12. Monitor CBC. ENDO: Euglycemic Noted that patient has prednisone listed on his medication reconciliation. According to prior records he was not on chronic prednisone. We'll discuss with family tomorrow. PROPH: Lovenox as per above. Famotidine 20 mg by mouth twice a day for stress ulcer prophylaxis. ACCESS: Port right chest. Peripheral IV. Discussed with Dr. Krishna. Level III consult Beth Landeros MD May 01, 2017 00:59
[2017-05-01] MEDS ORDERED: PIPERACIL-TAZO 3.375 GM PREMIX 50 ML IV SCH (01:00)
[2017-05-01] MEDS ORDERED: RESP: ALBUTEROL 2.5 MG/3 ML NEB (PRN) NEB (01:15)
[2017-05-01] MEDS ORDERED: POTASSIUM PHOSPHATE INJ 30 MMOL in SODIUM CHLOR 0.9% 250 ML INJ 250 ML IV PRN (02:00)
[2017-05-01] MEDS ORDERED: POTASSIUM PHOSPHATE MONOBASIC 500 MG TAB PO PRN (02:00)
[2017-05-01] MEDS: MORPHINE SULFATE 2 MG/ML INJ IV PUSH PRN ×3 (02:00→20:57)
[2017-05-01] MEDS ORDERED: ACETAMINOPHEN 325 MG TAB PO PRN (02:00)
[2017-05-01] MEDS ORDERED: POTASSIUM PHOSPHATE MONOBASIC 500 MG TAB PO/TUBE PRN (02:00)
[2017-05-01] MEDS ORDERED: POTASSIUM CHLOR 40 MEQ PREMIX 100 ML IV PRN ×2 (02:00)
[2017-05-01] MEDS ORDERED: SODIUM PHOSPHATE INJ 30 MMOL in SODIUM CHLOR 0.9% 250 ML INJ 240 ML IV PRN (02:00)
[2017-05-01] MEDS: PIPERACIL-TAZO 3.375 GM PREMIX 50 ML IV SCH ×4 (02:00→20:58)
[2017-05-01] MEDS ORDERED: POTASSIUM CHLOR 20 MEQ PREMIX 100 ML IV PRN ×2 (02:00)
[2017-05-01] MEDS ORDERED: MAGNESIUM SULFATE INJ 2 GM in SODIUM CHLORIDE 0.9% INJ 96 ML IV PRN (02:00)
[2017-05-01] MEDS ORDERED: MAGNESIUM OXIDE 400 MG TAB PO PRN (02:00)
[2017-05-01] MEDS ORDERED: POTASSIUM CHLORIDE 25 MEQ EFFERVESCENT TAB PO PRN (02:00)
[2017-05-01] MEDS ORDERED: MAGNESIUM SULFATE INJ 4 GM in SODIUM CHLORIDE 0.9% INJ 92 ML IV PRN (02:00)
[2017-05-01] MEDS: ENOXAPARIN SODIUM 60 MG/0.6 ML SYRINGE SQ SCH ×2 (02:25→15:07)
[2017-05-01] MEDS: REMOVE OLD LIDOCAINE PATCH T-DERMAL SCH (04:00)
[2017-05-01] MEDS: HALOPERIDOL LACTATE 5 MG/ML AMP IV PRN ×3 (04:00→21:47)
[2017-05-01 05:00] LABS: HEMATOCRIT 46.5 % (39.0-51.0); HEMOGLOBIN 16.6 GM/DL (13.0-17.0); MEAN CORPUSCULAR HEMOGLOBIN 33.9 PG (27.0-34.0); MEAN CORPUSCULAR HGB CONC 35.7 % (32.0-36.0); MEAN PLATELET VOLUME 7.8 FL (7.0-11.0); PLATELET COUNT 185 TH/MM3 (150-450); RED BLOOD COUNT 4.89 MIL/MM3 (4.50-5.90); RED CELL DISTRIBUTION WIDTH 14.6 % (11.6-17.2); WHITE BLOOD COUNT 12.8 TH/MM3 (4.0-11.0)
[2017-05-01 05:04] LABS: BICARBONATE 25.4 MEQ/L (21.0-32.0); CALCIUM 8.4 MG/DL (8.5-10.1); CREATININE 0.74 MG/DL (0.60-1.30)
[2017-05-01] MEDS: METHOCARBAMOL 500 MG TAB PO SCH ×3 (06:00→22:00)
[2017-05-01] MEDS: SODIUM CHLORIDE 0.9% FLUSH 10 ML FLUSH IV FLUSH SCH ×2 (09:00→20:58)
[2017-05-01] MEDS: TIOTROPIUM BROMIDE 18 MCG INH INH SCH (09:00)
[2017-05-01] MEDS: REMOVE OLD PATCH T-DERMAL SCH (09:00)
[2017-05-01] MEDS: NICOTINE 21 MG/24 HR PATCH T-DERMAL SCH (09:00)
[2017-05-01] MEDS: RESP: BUDESONIDE 0.5 MG/2 ML NEB NEB SCH ×2 (10:11→20:50)
[2017-05-01] MEDS: RESP: ALBUTEROL 2.5 MG/IPRATROPIUM 0.5 MG NEB (SCH) NEB ×4 (10:12→23:37)
[2017-05-01] MEDS: FAMOTIDINE 20 MG TAB PO SCH ×2 (10:44→21:00)
[2017-05-01] MEDS: DULoxetine HCl DR 20 MG CAP PO SCH (10:44)
[2017-05-01] MEDS: DOCUSATE SODIUM 50 MG/SENNA 8.6 MG TAB PO SCH ×2 (10:44→21:00)
[2017-05-01] MEDS: GABAPENTIN 300 MG CAP PO SCH ×2 (10:44→15:06)
[2017-05-01] MEDS: POLYETHYLENE GLYCOL 17 GM PKG PO SCH (10:45)
[2017-05-01] MEDS: methylPREDNISolone SOD SUCC 125 MG/2 ML VIAL IV PUSH SCH ×3 (10:48→21:48)
--- NOTE | 2017-05-01 11:02 | PD.CONS ---
Consult Service Palliative Care Consult Requested By Gissel Moses PA Primary Care Physician Silvino Ny MD, PhD Reason for Consultation a. To assist with evaluation and management of symptoms including: Shortness of breath, pain, confusion b. To assist medical decision maker(s) with: better understanding of current medical conditions; weighing benefits/burdens of medical treatment options; making medical treatment decisions. HPI History of Present Illness Mr. Martin is a [id number]-chu male with a significant history of COPD on home supplemental O2, stage IV lung cancer, PE, lobectomy, tobacco use, depression, and dyslipidemia. Patient presented to the [facility] ER via EMS on 01/06 for evaluation of left lower posterior rib pain and flank pain after experiencing a non-syncopal fall from a swivel chair at home while trying to change time on a clock. Height fall was approximately 5-6 feet. No loss of consciousness or trauma to head was reported per ER notes. Patient was supposedly to be on Xarelto for PE but he reported in the ER that he had not taken Xarelto for the past 2 weeks on his own. Per family patient stopped taking it due to a commercial on television that was advertising class action lawsuit. Patient was initially diagnosed of right lung adenocarcinoma in 2011 and he underwent resection of the right lung. Patient then developed malignant right pleural effusion 3 years later and at that point was diagnosed with stage IV disease. Patient is known to Dr. Chicas and is currently receiving palliative chemotherapy with Avastin. Patient's next dose of palliative chemotherapy is scheduled for Thursday 05/04. ER course: * Vital signs: Temperature 97.6, pulse 102, respirations 16, BP 112/66, O2 saturation 93% on O2 3 L nasal cannula * EKG revealed normal sinus rhythm rate 95, no acute ST elevation injury pattern * Chest x-ray revealed emphysema and chronic interstitial changes of both lungs , no pleural effusion, no pneumothorax and no acute cardiopulmonary disease demonstrated. * Head CT revealed no acute disease. No evidence of acute infarct, hemorrhage, mass or edema. * Chest CT revealed advanced COPD with bronchiectasis and basilar fibrotic changes. No evidence of pneumothorax. Chronic loculated right pleural effusion. Multiple left rib fractures and mild cardiomegaly. * Cervical spine CT revealed no evidence of acute fracture or traumatic listhesis. Status post anterior cervical fusion at C5-6. Degenerative disc disease with mild spondylosis. * Abdomen/pelvis CT revealed no acute bony or soft tissue trauma. Chronic right pleural effusion and segmental airspace disease left lower lobe noted. Stable hepatic and left renal cysts. Possible mid sigmoid fecal impaction. Penile prosthesis. * Laboratory workup revealed WBC 10.8, hemoglobin 15.3, hematocrit 45.6, platelet count 215, PT 9.6, INR 0.9, BUN/creatinine 14/0.84 * Urinalysis done culture not indicated. * DuoNeb's, morphine sulfate 1 mg IV push, and Zofran 4 mg IV push administered Patient was admitted to trauma services and was transferred to [facility]. On 04/30/17 patient was very agitated and confused. Patient also required a partial nonrebreather from nasal cannula. Chest x-ray on 04/30 revealed new left lower lobe infiltrate. Critical care management Dr. Landeros consulted on 04/30/17 for management of patient with consent for worsening respiratory. Palliative care consulted for establishing goals of care. Patient seen and examined in ICU. Patient is currently on a BiPAP machine, awake , alert and oriented to self, place with some confusion. Per bedside RN patient has been having intermittent confusion. Patient endorsing pain to his left side chest. Chest x-ray today revealing slightly more pronounced bibasilar infiltrates. Patient is afebrile. O2 saturation in the mid to high 90s on FIO2 50%. Patient verbalized that he would like his healthcare surrogate(s) to assist with making medical decisions for him. Patient`s who is his HCS is forgetful, hard o hearing and was recently hospitalized per their 3 adult children. Patient`s son who is the alternate HCS stated that he will involve his mother in decision making for the patient. Lengthy meeting with patient`s alternate HCS son Enrico Martin who is also a Registered RN, son- Jean Martin, Alexandre Dewitt- Daughter in [facility] and daughter Juliana Howe. Obtained psychosocial and past medical history. Discussed with family patient`s trajectory of decline in the past few years. Patient`s children understands that their father was going to further deteriorate one way or the other and they understand that given recent injury involving multiple rib fractures might be their fathers` "fate". Addressed code status, discussed risks, benefits and limitations of CPR given ongoing multiple comorbidities and current patient's medical status. Family stated that patient would not want chest compressions performed and in case of worsening respiratory status, he would not want to be intubated and placed on mechanical ventilation. Family agreed to make patient a DNR/ DNI. Family understands that patient may continue to decline and have requested hospice services for comfort measures at time of discharge. At this time they would like to maximize current treatment ( antibiotics and IVF) and at least somewhat have patient stabilized maybe for a few days so that he can be discharged home with hospice. Later met patient`s at bedside, and patient`s son updating her on issues discussed during meeting. Patient`s does not have concerns or questions at this time. Palliative care contact information provided. . Function/Cognitive Trajectory Patient lived at home with his prior to hospitalization. They have a caregiver and daughter currently lives with them as well. Patient has been able to verbalize needs prior to hospitalization. Patient ambulated independently in the house though he was supposed to use a walker at home. Family reports of patient not even being able to ambulate to and from the mail box due to dyspnea. Patient has had multiple falls at home. He is also on chronic O2 2LNC at home. Son reported an unintentional weight loss of over 40 pounds in a 11/2 years. . Review of Systems ROS Limitations: Clinical Condition Constitutional: COMPLAINS OF: Weight loss, Pain, Generalized weakness, DENIES: Fever, Chills Eyes: DENIES: Vision loss Ears, nose, mouth, throat: DENIES: Hearing loss Respiratory: COMPLAINS OF: Cough, Shortness of breath, DENIES: Hemoptysis Cardiovascular: COMPLAINS OF: Chest pain (Left-sided rib pain), DENIES: Lower Extremity Edema Gastrointestinal: DENIES: Constipation, Nausea, Vomiting Genitourinary: DENIES: Urinary incontinence Hematologic/Lymphatics: COMPLAINS OF: Bruising Neurologic: DENIES: Headache Psychiatric: COMPLAINS OF: Confusion, Agitation Other ROS: ROS obtained from EMR and clinical observation. . 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 Past Surgical History Right lower lobectomy and node sampling in 2012 Penile implant Cataract removal Right shoulder repair surgery Bilateral cataract surgery Cervical fusion [id number] placement-right chest Cholecystectomy Appendectomy . Reported Medications Xarelto (Rivaroxaban) 20 Mg Tab 20 Mg PO DAILY Percocet (Oxycodone-Acetaminophen) 5-325 mg Tab 1 Tab PO Q6H PRN Cymbalta DR (Duloxetine HCl) 20 Mg Capdr 20 Mg PO DAILY Prednisone 10 Mg Tab 10 Mg PO DAILY Ventolin Hfa 18 GM Inh (Albuterol Sulfate) 90 Mcg/Act Aer 1 Puff INH Q4H PRN Spiriva Handihaler (Tiotropium Inh) 18 Mcg Cap 18 Mcg INH DAILY Alprazolam 0.25 Mg Tab 0.25 Mg PO TID PRN . Current Medications Medications (Trade) Dose Ordered Sig/Renata Route Start Time Stop Time Status Last Admin (Habitrol 21 Mg Patch.24 Hr) 1 patch DAILY T-DERMAL 04/29/17 09:00 04/30/17 08:25 Miscellaneous Information 1 DAILY T-DERMAL 04/29/17 09:00 04/30/17 09:00 (NS Flush) 2 ml UNSCH PRN IV FLUSH 04/29/17 13:00 (NS Flush) 2 ml BID IV FLUSH 04/29/17 21:00 04/30/17 20:26 (Zofran Inj) 4 mg Q6H PRN IV PUSH 04/29/17 13:00 (Pepcid) 20 mg BID PO 04/29/17 21:00 04/30/17 08:25 (Morphine Inj) 2 mg Q3H PRN IV PUSH 04/29/17 13:00 05/01/17 02:00 (Narcan Inj) 0.4 mg UNSCH PRN IV PUSH 04/29/17 13:00 (Cymbalta Dr) 20 mg DAILY PO 04/30/17 09:00 04/30/17 08:25 (Spiriva Inh) 18 mcg DAILY INH 04/30/17 09:00 04/30/17 20:58 (Morphine Inj) 4 mg Q3H PRN IV PUSH 04/29/17 14:00 (Roxicodone) 5 mg Q4H PRN PO 04/29/17 14:00 04/30/17 17:00 (Robaxin) 500 mg Q8HR PO 04/29/17 15:00 05/01/17 06:00 (Marcia-Colace) 1 tab BID PO 04/29/17 21:00 04/30/17 20:26 (Lactulose Liq) 30 ml DAILY PRN PO 04/29/17 14:00 (Miralax) 17 gm DAILY PO 04/29/17 15:00 04/30/17 08:25 (Lidoderm 5% Patch.12 Hr) 1 patch Q24H T-DERMAL 04/29/17 16:00 04/30/17 16:00 Miscellaneous Information 1 Q24H T-DERMAL 04/30/17 04:00 05/01/17 04:00 (Neurontin) 300 mg TID PO 04/30/17 13:00 04/30/17 13:04 (Haldol Inj) 2 mg Q4H PRN IV 04/30/17 22:00 05/01/17 04:00 (Trandate Inj) 10 mg Q4H PRN IV PUSH 04/30/17 22:00 (Lovenox Inj) 60 mg Q12H SQ 05/01/17 03:00 05/01/17 02:25 (Pulmicort Respule Neb) 0.5 mg Q12HR NEB NEB 05/01/17 08:00 (Albuterol Neb) 2.5 mg Q2HR NEB PRN NEB 05/01/17 01:15 Piperacillin Sod/ Tazobactam Sod 50 ml @ 100 mls/hr Q6H IV 05/01/17 02:00 05/01/17 02:00 Potassium Chloride 100 ml @ 50 mls/hr Q2H PRN IV 05/01/17 02:00 Potassium Chloride 100 ml @ 50 mls/hr Q2H PRN IV 05/01/17 02:00 (K-Lyte Cl Eff) 50 meq UNSCH PRN PO 05/01/17 02:00 Potassium Chloride 100 ml @ 25 mls/hr UNSCH PRN IV 05/01/17 02:00 Potassium Chloride 100 ml @ 50 mls/hr Q2H PRN IV 05/01/17 02:00 Magnesium Sulfate 4 gm/Sodium Chloride 100 ml @ 50 mls/hr UNSCH PRN IV 05/01/17 02:00 (Mag-Ox) 800 mg UNSCH PRN PO 05/01/17 02:00 Magnesium Sulfate 2 gm/Sodium Chloride 100 ml @ 50 mls/hr UNSCH PRN IV 05/01/17 02:00 (K-Phos) 2,000 mg Q4H PRN PO 05/01/17 02:00 Sodium Phosphate 30 mmol/Sodium Chloride 250 ml @ 42 mls/hr UNSCH PRN IV 05/01/17 02:00 (K-Phos) 2,000 mg UNSCH PRN PO/TUBE 05/01/17 02:00 Potassium Phosphate 30 mmol/ Sodium Chloride 260 ml @ 42 mls/hr UNSCH PRN IV 05/01/17 02:00 (Tylenol) 650 mg Q4H PRN PO 05/01/17 02:00 (Duoneb Neb) 1 ampule Q4HR NEB NEB 05/01/17 12:00 (SoluMEDROL INJ) 60 mg Q8HR IV PUSH 05/01/17 09:00 Family History Mother in her 90`s. She had CHF Father . . Substance Use Tobacco: Current smoker. Smokes 1PPD since age 15 Alcohol: Occasional alcohol use, about 1 daily p.o. week Prescription med abuse: None reported Illicits: None reported . Psychosocial History Patient was born and raised in [place], [place]. Patient served in the [employer] and when he retired from the [employer] in the he moved to [place]. Patient is . Patient has prior asbestos exposure. . Spiritual/Cultural Factors Religious . Living Will: Never completed Health Care Surrogate: Copy in medical record Durable Power of Family Preservation Worker: Never completed Date completed: 10/29/2015 . Health Care Surrogate(s): Spouse- [facility]- Chandler Thompson [phone] Home/[phone] cell Son- Alternate [facility]- Clarita Weston [phone] . Family/friends goals: They want patient to be stabilized maybe for a couple of days and then transition to comfort care only. . Ethical and Legal Issues None identified at this time. . Physical Exam Vital Signs Date Time Temp Pulse Resp B/P (MAP) Pulse Ox O2 Delivery O2 Flow Rate FiO2 05/01/17 06:00 96 05/01/17 04:00 97 05/01/17 04:00 98.5 97 24 153/74 (100) 100 05/01/17 02:00 94 05/01/17 00:00 106 3/13/18 00:00 98.0 106 24 149/77 (101) 100 04/30/17 22:00 117 04/30/17 20:30 160/89 (112) 04/30/17 20:11 98 Partial Rebreather 10.00 04/30/17 20:00 101 04/30/17 20:00 98.5 103 22 184/88 (120) 94 04/30/17 19:30 94 Partial Non-Rebreather 9.00 04/30/17 18:00 100 04/30/17 16:00 98.0 100 18 165/78 (107) 92 04/30/17 16:00 98.5 94 22 175/81 (112) 88 04/30/17 16:00 98.4 96 22 175/81 (112) 88 04/30/17 16:00 100 04/30/17 16:00 98.5 100 22 165/78 (107) 92 04/30/17 14:00 90 04/30/17 12:00 92 04/30/17 12:00 98.0 94 28 169/78 (108) 97 04/30/17 10:00 92 Exam CONSTITUTIONAL/GENERAL: This is an adequately nourished patient, in mild respiratory distress. TUBES/LINES/DRAINS: PIV, Infusa-port R chest, SCDs, SKIN: No jaundice, rashes, or lesions. Ecchymoses on upper extremities. No wounds seen anteriorly. Skin temperature appropriate. Not diaphoretic. HEAD: Atraumatic. Normocephalic. EYES: Pupils equal and round and reactive. Extraocular motions intact. No scleral icterus. No injection or drainage. Fundi not examined. ENT: Hearing grossly normal. Nose without bleeding or purulent drainage. NECK: Trachea midline. Supple, nontender. CARDIOVASCULAR: Regular rate and rhythm without murmurs, gallops, or rubs. No JVD. Peripheral pulses symmetric. RESPIRATORY/CHEST: Symmetric, unlabored respirations. Clear to auscultation. Breath sounds diminished, rhonchi, No wheezes, rales. GASTROINTESTINAL: Abdomen soft, non-tender, nondistended. No guarding. Bowel sounds present. GENITOURINARY: Without palpable bladder distension. MUSCULOSKELETAL: Extremities without clubbing, cyanosis, or edema. No joint tenderness or effusion noted. No calf tenderness. No mottling or clubbing. NEUROLOGICAL: Awake and lethargic, oriented to self, place, situation with some intermittent confusion. Motor and sensory grossly within normal limits. Follows commands. Moves all extremities. PSYCHIATRIC: No obvious anxiety/depression. no apparent hallucinations or other psychotic thought process. Diagnostic Tests Laboratory Laboratory Tests Test 04/29/17 06:35 04/29/17 07:37 04/30/17 03:53 04/30/17 22:00 White Blood Count 10.8 TH/MM3 (4.0-11.0) 8.0 TH/MM3 (4.0-11.0) Red Blood Count 4.82 MIL/MM3 (4.50-5.90) 4.38 MIL/MM3 (4.50-5.90) Hemoglobin 15.3 GM/DL (13.0-17.0) 14.8 GM/DL (13.0-17.0) Hematocrit 45.6 % (39.0-51.0) 42.0 % (39.0-51.0) Mean Corpuscular Volume 94.7 FL (80.0-100.0) 96.0 FL (80.0-100.0) Mean Corpuscular Hemoglobin 31.9 PG (27.0-34.0) 33.8 PG (27.0-34.0) Mean Corpuscular Hemoglobin Concent 33.6 % (32.0-36.0) 35.3 % (32.0-36.0) Red Cell Distribution Width 14.0 % (11.6-17.2) 14.7 % (11.6-17.2) Platelet Count 215 TH/MM3 (150-450) 180 TH/MM3 (150-450) Mean Platelet Volume 7.2 FL (7.0-11.0) 7.3 FL (7.0-11.0) Neutrophils (%) (Auto) 78.3 % (16.0-70.0) 72.4 % (16.0-70.0) Lymphocytes (%) (Auto) 12.1 % (9.0-44.0) 18.9 % (9.0-44.0) Monocytes (%) (Auto) 7.1 % (0.0-8.0) 7.2 % (0.0-8.0) Eosinophils (%) (Auto) 0.8 % (0.0-4.0) 0.9 % (0.0-4.0) Basophils (%) (Auto) 1.7 % (0.0-2.0) 0.6 % (0.0-2.0) Neutrophils # (Auto) 8.4 TH/MM3 (1.8-7.7) 5.8 TH/MM3 (1.8-7.7) Lymphocytes # (Auto) 1.3 TH/MM3 (1.0-4.8) 1.5 TH/MM3 (1.0-4.8) Monocytes # (Auto) 0.8 TH/MM3 (0-0.9) 0.6 TH/MM3 (0-0.9) Eosinophils # (Auto) 0.1 TH/MM3 (0-0.4) 0.1 TH/MM3 (0-0.4) Basophils # (Auto) 0.2 TH/MM3 (0-0.2) 0.0 TH/MM3 (0-0.2) CBC Comment AUTO DIFF DIFF FINAL Differential Comment AUTO DIFF CONFIRMED Platelet Estimate NORMAL (NORMAL) Platelet Morphology Comment NORMAL (NORMAL) Prothrombin Time 9.6 SEC (9.8-11.6) Prothromb Time International Ratio 0.9 RATIO Activated Partial Thromboplast Time 24.7 SEC (24.3-30.1) Blood Urea Nitrogen 14 MG/DL (7-18) Creatinine 0.84 MG/DL (0.60-1.30) Random Glucose 103 MG/DL (74-106) Calcium Level 8.3 MG/DL (8.5-10.1) Sodium Level 137 MEQ/L (136-145) Potassium Level 4.2 MEQ/L (3.5-5.1) Chloride Level 99 MEQ/L (98-107) Carbon Dioxide Level 29.9 MEQ/L (21.0-32.0) Anion Gap 8 MEQ/L (5-15) Estimat Glomerular Filtration Rate 88 ML/MIN (>89) Urine Collection Type CLEAN CATCH Urine Color YELLOW (YELLW/STRAW) Urine Turbidity CLEAR (CLEAR) Urine pH 5.5 (5.0-8.5) Urine Specific Jewett 1.025 (1.002-1.035) Urine Protein 30 mg/dL (NEG-TRACE) Urine Glucose (UA) NEG mg/dL (NEG) Urine Ketones NEG mg/dL (NEG) Urine Occult Blood TRACE (NEG) Urine Nitrite POS (NEG) Urine Bilirubin NEG (NEG) Urine Urobilinogen 0.2 MG/DL (LESS THAN Urine Leukocyte Esterase NEG (NEG) Urine RBC 0-3 /hpf (0-3) Urine Squamous Epithelial Cells 0-5 /hpf (0-5) Urine Amorphous Sediment MOD Microscopic Urinalysis Comment CULT NOT INDICATED Urine Collection Time 0737 Blood Gas Puncture Site RT RADIAL Blood Gas Patient Temperature 98.6 Blood Gas HCO3 24 mmol/L (22-26) Blood Gas Base Excess -0.4 mmol/L (-2-2) Blood Gas Oxygen Saturation 91 % (90-100) Arterial Blood pH 7.39 (7.380-7.420) Arterial Blood Partial Pressure CO2 40 mmHg (38-42) Arterial Blood Partial Pressure O2 68 mmHg (61-120) Arterial Blood Oxygen Content 20.8 Vol % (12.0-20.0) Arterial Blood Carboxyhemoglobin 1.8 % (0-4) Arterial Blood Methemoglobin 1.0 % (0-2) Blood Gas Hemoglobin 16.2 G/DL (12.0-16.0) Oxygen Delivery Device PRB Blood Gas Liter Flow 10 L/M Test 05/01/17 03:57 White Blood Count 12.8 TH/MM3 (4.0-11.0) Red Blood Count 4.89 MIL/MM3 (4.50-5.90) Hemoglobin 16.6 GM/DL (13.0-17.0) Hematocrit 46.5 % (39.0-51.0) Mean Corpuscular Volume 95.0 FL (80.0-100.0) Mean Corpuscular Hemoglobin 33.9 PG (27.0-34.0) Mean Corpuscular Hemoglobin Concent 35.7 % (32.0-36.0) Red Cell Distribution Width 14.6 % (11.6-17.2) Platelet Count 185 TH/MM3 (150-450) Mean Platelet Volume 7.8 FL (7.0-11.0) Hematology Comments Blood Urea Nitrogen 12 MG/DL (7-18) Creatinine 0.74 MG/DL (0.60-1.30) Random Glucose 104 MG/DL (74-106) Calcium Level 8.4 MG/DL (8.5-10.1) Magnesium Level 2.0 MG/DL (1.5-2.5) Sodium Level 132 MEQ/L (136-145) Potassium Level 4.2 MEQ/L (3.5-5.1) Chloride Level 98 MEQ/L (98-107) Carbon Dioxide Level 25.4 MEQ/L (21.0-32.0) Anion Gap 9 MEQ/L (5-15) Estimat Glomerular Filtration Rate 102 ML/MIN (>89) Result Diagram: 05/01/17 0357 05/01/17 0357 Microbiology Microbiology Date/Time Source Procedure Growth Status 05/01/17 01:30 Blood Peripheral Aerobic Blood Culture Pending Received 05/01/17 01:30 Blood Peripheral Anaerobic Blood Culture Pending Received 05/01/17 01:30 Blood Peripheral Aerobic Blood Culture Pending Received 05/01/17 01:30 Blood Peripheral Anaerobic Blood Culture Pending Received Imaging Last Impressions Chest X-Ray 04/30/17 0600 Signed Impressions: Service Date/Time: Sunday, April 30, 2017 00:56 - CONCLUSION: New left lower lobe infiltrate. Chemo Durand Jr., MD Head CT 04/30/17 0000 Signed Impressions: Service Date/Time: Monday, May 01, 2017 00:17 - CONCLUSION: No acute disease. Chemo Durand Jr., MD Chest CT 04/29/17 0000 Signed Impressions: Service Date/Time: Saturday, April 29, 2017 07:25 - CONCLUSION: 1. Advanced COPD with bronchiectasis and basilar fibrotic changes.. 2. No evidence of pneumothorax. 3. Chronic loculated right pleural effusion. 4. Multiple left rib fractures 5. Mild cardiomegaly. Cisco Gomes MD Cervical Spine CT 04/29/17 0000 Signed Impressions: Service Date/Time: Saturday, April 29, 2017 07:19 - CONCLUSION: 1. No evidence of acute fracture or traumatic listhesis. 2. Status post intracervical fusion at C5-6. 3. Degenerative disc disease with mild spondylosis. Cisco Gomes MD Abdomen/Pelvis CT 04/29/17 0000 Signed Impressions: Service Date/Time: Saturday, April 29, 2017 07:25 - CONCLUSION: 1. No evidence of acute bony or soft tissue trauma. 2. Chronic right pleural effusion 3. Segmental airspace disease left lower lobe. 4. Stable hepatic and left renal cysts. 5. Possible mid sigmoid fecal impaction. 6. Penile prosthesis identified. Cisco Gomes MD Patient/Family Conference Family Conference Location: Bedside, Other (ICU conference room) Issues Discussed: * Palliative care role, purpose, approach * Additional medical, psychosocial, and spiritual history * Patients general health, functional status, and cognitive changes in the months leading up to the current hospitalization * Patient/family understanding of the current medical problems * Patient/family understanding of prognosis * Patients goals of care as best understood from advance directives and/or conversations and/or values * Current medical treatment options and benefits/burdens of those options * Likely scenarios comparing ongoing aggressive care with a transition to comfort measures only * Questions answered to the best of my ability * Introduced hospice philosophy and benefits * Palliative care contact information provided Assessment and Plan Disease Oriented Problem List: (1) Multiple fractures of ribs of left side (2) 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 (3) Pulmonary embolism (4) COPD (chronic obstructive pulmonary disease) Symptom Scale: (1) Shortness of breath Comment: Multifactorial. Hx of Stage IV lung CA with chronic pleural effusion, COPD on chronic home O2, recent rib fractures. . (2) Pain Comment: Recent fall and had rib fractures. . (3) Confusion Comment: Multifactorial. COPD on chronic O2 and multiple rib fx. Possibly due to worsening respiratory status. . Pertinent Non-Medical Issues Psychosocial:Patient was born and raised in [place], [place]. Patient served in the [employer] and when he retired from the [employer] in the he moved to [place]. Patient is . Patient has prior asbestos exposure. Spiritual: Religious Legal: Patient is healthcare surrogate form completed Ethical issues impacting care: None identified at this time . Important Contacts Spouse- [facility]- Chandler Thompson [phone] Home/[phone] cell Son-Enrico Martin-[phone] Daughter-Juliana Howe- [phone] Son- Mario Pena . Prognosis Mr. Martin is a 20-year-old male with a significant history of COPD on home supplemental O2, stage IV lung cancer, PE, lobectomy, tobacco use, depression, and dyslipidemia. Patient presented to the [facility] ER via EMS on 01/06 for evaluation of left lower posterior rib pain and flank pain after experiencing a non-syncopal fall from a swivel chair at home. Patient sustained multiple rib fractures with nondisplaced rib fractures of left eighth 2/10 ribs and was also noted to have a chronic loculated right pleural effusion. Clinical course complicated with worsening respiratory status, confusion, and agitation. In the setting of stage IV lung cancer on palliative chemotherapy, multiple ongoing comorbidities and recent multiple rib fractures, patient remains at risk for further complications, deterioration and decline. . Code Status: No Code (DNR/DNI) Plan PLAN: Legal decision maker: Patient is partially oriented with episodes of intermittent confusion and agitation. Patient verbalized that he would like his healthcare surrogate(s) to assist with making medical decisions for him. Patient`s Healthcare Surrogate(HCS) is his Mario Thompson and his alternate HCS his son, Enrico Martin. Goals:Aggressive short of no code- Family wants patient to maximize treatment for a couple or few days and have patient discharged home with hospice. CODE STATUS: No Code-DNR/DNI SYMPTOMS: * Shortness of breath:Multifactorial. Hx of Stage IV lung CA with chronic pleural effusion, COPD on chronic home O2, tobacco use, recent rib fractures. Patient currently on empirical antibiotics, duonebs Q 4 hrs, solumedrol 60mg q 8 HRS, albuterol nebs Q 2 hrs prn. * Pain : Patient recently fell and had multiple rib fractures. Patient is on Morphine Sulfate 2mg Q 2 hrs prn. * Confusion: Multifactorial. COPD on chronic O2 and multiple rib fx. Possibly due to worsening respiratory status. . Palliative care will continue to follow the patient during hospital course as condition evolves, to assist patient/decision-maker with understanding of their medical conditions, weighing benefits/burdens of treatment options, for clarification of goals of treatment. Additionally will assist with any symptoms of palliative concern Thank you for the opportunity to participate in the care of Mr. Martin. Attestation To help prompt me to consider important information that might be impacting today's encounter and assessment, information from prior notes written by myself or my colleagues may have been "brought forward" into today's note. My signature on this note, however, is an attestation that I personally performed the exam, history, and/or decision-making noted today, and, unless otherwise indicated, the interactions with patient, family, and staff as well as the review of records all occurred today. I also attest that the listed assessment and stated plan reflect my best clinical judgment today based on the combination of historical information, prior notes, and today's exam/ interactions. When time spent is documented, it refers only to time spent today by the signer, or if indicated, combined time spent today by collaborating physician/nurse practitioner. Bimal Zapata May 01, 2017 10:56
--- NOTE | 2017-05-01 11:08 | RADRPT ---
EXAM DATE/TIME: 05/01/2017 10:46 [facility] COMPARISON: April 30 INDICATIONS : <<Short of breath, chest and rib pain>> MEDICAL HISTORY : Chronic obstructive pulmonary disease. SURGICAL HISTORY : Cholecystectomy. right lower lobectomy, cervical fusion ENCOUNTER: Subsequent ACUITY: 4 - 6 days PAIN SCORE: Non-responsive. LOCATION: Bilateral chest FINDINGS: A single view of the chest demonstrates right [id number] and superior vena cava. Heart size within normal limits. Basilar airspace disease slightly improved from April 30. No pneumothorax. Small righ t effusion. CONCLUSION: 1. Basilar airspace disease slightly improved from April 30. No new infiltrate. Stable right effusion . Tha Tompkins MD on May 01, 2017 at 11:02 Board Certified Radiologist. This report was verified electronically.
[2017-05-01] MEDS: DEXTROSE 5%-LACTATED RING INJ 1,000 ML IV SCH (12:00)
[2017-05-01] MEDS: LIDOCAINE HCL 5% PATCH T-DERMAL SCH (15:09)
--- NOTE | 2017-05-01 16:29 | HHI.CCPN ---
Subjective Brief History This 82-year-old gentleman was changing his clock at home yesterday and fell from a standing position onto his left side. Patient is complaining about left chest pain. He was seen in the [place] ER and diagnosed with serial rib fractures, small pneumothorax on the left, and I was asked to admit the patient. Patient is now transferred to the main hospital considering the complexity of his additional comorbidities and problems. Patient will admitted to ICU overnight for observation. This patient was initially diagnosed with right lower lobe adenocarcinoma. He underwent resection. Then, he did well after that. A few years later, he developed right pleural effusion and was noted to have, at this point, stage IV adenocarcinoma of the lung. Patient current receiving chemotherapy. 24 Hour Review/Hospital Course For last 24 hours patient has been stable He is awake alert and oriented Tender over the left chest in face of fractures Bilateral good breath sounds and good inspiratory effort but poor oxygen exchange and poor PO2 FiO2 gradient In the face of COPD lung carcinoma and now pulmonary contusion with rib fractures this patient's respiratory status is quite precarious and he may end up on the ventilator for short period of time however right now he is doing well in every effort should be made to avoid patient ending intubated. Hemodynamically patient is stable Plan Consult pulmonary/oncology Patient is supposed to get next dose of chemotherapy on Monday 05/01 c/o thoracic pain left chest wall required to be on BIPAP for SOB HD stable,neuro intact has multiple pulmonary issues-COPD,lung cancer,PE and now rib fractures will be difficult to manage without intubation Objective Vital Signs Date Time Temp Pulse Resp B/P (MAP) Pulse Ox O2 Delivery O2 Flow Rate FiO2 05/01/17 08:55 97 50 05/01/17 08:55 BiPAP 05/01/17 07:00 7.00 05/01/17 06:00 96 05/01/17 04:00 98.5 24 153/74 (100) Intake and Output 05/01/17 05/01/17 05/02/17 08:00 16:00 00:00 Intake Total 240 ml Balance 240 ml Result Diagram: 05/01/17 0357 05/01/17 0357 Other Results Laboratory Tests Test 04/30/17 22:00 Blood Gas Puncture Site RT RADIAL Blood Gas Patient Temperature 98.6 Blood Gas HCO3 24 mmol/L (22-26) Blood Gas Base Excess -0.4 mmol/L (-2-2) Blood Gas Oxygen Saturation 91 % (90-100) Arterial Blood pH 7.39 (7.380-7.420) Arterial Blood Partial Pressure CO2 40 mmHg (38-42) Arterial Blood Partial Pressure O2 68 mmHg (61-120) Arterial Blood Oxygen Content 20.8 Vol % (12.0-20.0) Arterial Blood Carboxyhemoglobin 1.8 % (0-4) Arterial Blood Methemoglobin 1.0 % (0-2) Blood Gas Hemoglobin 16.2 G/DL (12.0-16.0) Oxygen Delivery Device PRB Blood Gas Liter Flow 10 L/M Imaging Last 24 hours Impressions Chest X-Ray 05/01/17 0000 Signed Impressions: Service Date/Time: Monday, May 01, 2017 10:46 - CONCLUSION: 1. Basilar airspace disease slightly improved from April 30. No new infiltrate. Stable right effusion. Tha Tompkins MD Exam [employer] GCS 15 Hemodynamic/Cardiac stable Pulmonary/Respiratory BIPAP Abdomen/GI Nutrition soft Urinary Catheter Assessment Urinary Catheter: Yes Vascular Central Line Catheter Vascular Central Line Catheter: No Assessment and Plan Plan continue noninvasive ventilation pain control,IS follow discussion with palliative care-for plan of care Carmita Oseguera MD May 01, 2017 16:29
[2017-05-02] VITALS (11 sets, daily range): BP systolic 114–145; BP diastolic 60–79; PULSE 84–105; RESP 16–25; TEMP 96.8–98.2; O2SAT 92–99
[2017-05-02] MEDS: MORPHINE SULFATE 2 MG/ML INJ IV PUSH PRN ×2 (00:56→02:57)
[2017-05-02] MEDS: PIPERACIL-TAZO 3.375 GM PREMIX 50 ML IV SCH ×4 (02:23→19:32)
[2017-05-02] MEDS: ENOXAPARIN SODIUM 60 MG/0.6 ML SYRINGE SQ SCH ×2 (03:00→14:51)
[2017-05-02] MEDS: REMOVE OLD LIDOCAINE PATCH T-DERMAL SCH (03:23)
[2017-05-02] MEDS: RESP: ALBUTEROL 2.5 MG/IPRATROPIUM 0.5 MG NEB (SCH) NEB ×5 (03:42→20:00)
[2017-05-02] MEDS: METHOCARBAMOL 500 MG TAB PO SCH ×3 (05:05→22:47)
[2017-05-02] MEDS: methylPREDNISolone SOD SUCC 125 MG/2 ML VIAL IV PUSH SCH ×3 (05:05→22:48)
[2017-05-02 05:37] LABS: AUTOMATED NEUTROPHIL # 7.7 TH/MM3 (1.8-7.7); BASOPHIL # 0.1 TH/MM3 (0-0.2); HEMATOCRIT 39.2 % (39.0-51.0); HEMOGLOBIN 14.2 GM/DL (13.0-17.0); LYMPH % 3.1 % (9.0-44.0); LYMPHOCYTE # 0.3 TH/MM3 (1.0-4.8); MEAN CELL VOLUME 92.5 FL (80.0-100.0); MEAN CORPUSCULAR HEMOGLOBIN 33.5 PG (27.0-34.0); MEAN PLATELET VOLUME 7.2 FL (7.0-11.0); MONO % 2.4 % (0.0-8.0); MONOCYTE # 0.2 TH/MM3 (0-0.9); NEUT % 93.5 % (16.0-70.0); PLATELET COUNT 188 TH/MM3 (150-450); RED BLOOD COUNT 4.24 MIL/MM3 (4.50-5.90); RED CELL DISTRIBUTION WIDTH 14.3 % (11.6-17.2); WHITE BLOOD COUNT 8.3 TH/MM3 (4.0-11.0)
[2017-05-02 05:40] LABS: MEAN CORPUSCULAR HGB CONC 36.2 % (32.0-36.0)
[2017-05-02 06:01] LABS: BICARBONATE 24.8 MEQ/L (21.0-32.0); CALCIUM 8.8 MG/DL (8.5-10.1); CREATININE 0.68 MG/DL (0.60-1.30)
--- NOTE | 2017-05-02 06:04 | RADRPT ---
EXAM DATE/TIME: 05/02/2017 05:27 [facility] COMPARISON: CHEST SINGLE AP, May 01, 2017, 10:46. INDICATIONS : Short of breath. MEDICAL HISTORY : Chronic obstructive pulmonary disease SURGICAL HISTORY : : Cholecystectomy. right lower lobectomy, cervical fusion ENCOUNTER: Subsequent ACUITY: 1 week PAIN SCORE: 0/10 LOCATION: Bilateral chest FINDINGS: A single portable frontal view of the chest shows bibasilar consolidations have progressed. Tiny bila teral pleural effusions. Heart small enlarged. Port-A-Cath overlies the right chest. CONCLUSION: Worsening bibasilar consolidations and tiny effusions. Chemo Durand Jr., MD on May 02, 2017 at 6:02 Board Certified Radiologist. This report was verified electronically.
[2017-05-02] MEDS: DEXTROSE 5%-LACTATED RING INJ 1,000 ML IV SCH (08:00)
[2017-05-02] MEDS: GABAPENTIN 300 MG CAP PO SCH ×3 (09:00→17:59)
[2017-05-02] MEDS: POLYETHYLENE GLYCOL 17 GM PKG PO SCH (09:00)
[2017-05-02] MEDS: REMOVE OLD PATCH T-DERMAL SCH (09:00)
[2017-05-02] MEDS: TIOTROPIUM BROMIDE 18 MCG INH INH SCH (09:00)
[2017-05-02] MEDS: SODIUM CHLORIDE 0.9% FLUSH 10 ML FLUSH IV FLUSH SCH ×2 (09:00→19:31)
[2017-05-02] MEDS: RESP: BUDESONIDE 0.5 MG/2 ML NEB NEB SCH (09:23)
[2017-05-02] MEDS: FAMOTIDINE 20 MG TAB PO SCH ×2 (09:55→19:30)
[2017-05-02] MEDS: DOCUSATE SODIUM 50 MG/SENNA 8.6 MG TAB PO SCH ×2 (09:55→19:30)
[2017-05-02] MEDS: DULoxetine HCl DR 20 MG CAP PO SCH (09:55)
[2017-05-02] MEDS: NICOTINE 21 MG/24 HR PATCH T-DERMAL SCH (09:56)
--- NOTE | 2017-05-02 14:29 | HHI.CCPN ---
Subjective Remarks/Hospital Course 82-year-old male with past medical history of COPD, bronchiectasis, adenocarcinoma left lower lobe diagnosed in 2011 with metastatic disease diagnosed in November 2014 on palliative chemotherapy with Avastin, Subsegmental RLL PE (02/12/17) prescribed xarelto. He presented to [facility] after a fall from a chair onto his left side. He was found to have multiple rib fractures with nondisplaced rib fractures of left eighth-10th ribs and chronic loculated right pleural effusion. CT brain/Cspine/ Abd/pelvis were negative for acute abnormalities. He was admitted to [facility] under the care of the trauma service. [facility] is consulted today by Dr. Krishna after RN notified him that patient was agitated and confused. He was initially on NC upon admission but has been on PNR this evening. He has a weak cough. Family reports that he was on xarelto for his PE but he stopped taking it 2 weeks ago due to commercial advertising class action lawsuit. 05/02: Breathing with acceptable comfort and taking deep breaths without limitation by rib pain. Requiring partial NRBM to maintain sats. Bilateral lower lobe infiltrates and loculated fluid. Objective Vital Signs Date Time Temp Pulse Resp B/P (MAP) Pulse Ox O2 Delivery O2 Flow Rate FiO2 05/02/17 12:00 90 05/02/17 12:00 98.1 18 145/79 (101) 97 05/02/17 09:24 Partial Rebreather 10.00 05/01/17 08:55 50 Result Diagram: 05/02/17 0511 05/02/17 0511 Disinhibition Score: 19.18 Aggression Score: 14.00 Lability Score: 14.00 Agitated Behavior Total Score: 17 Objective Remarks GENERAL: Elderly male, comfortable. SKIN: Warm and dry, adequately perfused. HEAD: Atraumatic. Normocephalic. EYES: Pupils equal and round, 3 mm and reactive to 3 mm bilaterally. No scleral icterus. No injection or drainage. ENT: No nasal bleeding or discharge. Mucous membranes pink and moist. NECK: Trachea midline. Airway widely patent. CARDIOVASCULAR: Regular rate and rhythm. No murmurs rubs or gallops. No JVD. RESPIRATORY: Mildly tachypneic, no accessory muscle use. Coarse breath sounds bilaterally. Still weak cough. No wheezes. GASTROINTESTINAL: Abdomen soft, non-tender, nondistended. Bowel sounds present. MUSCULOSKELETAL: Extremities without clubbing, cyanosis, or edema. No obvious deformities. Well perfused. NEUROLOGICAL: Arouses to voice, makes eye contact. Oriented to self and year but not place. Moves all extremities spontaneously without apparent focal deficit. Conversant. A/P Problem List: (1) Multiple fractures of ribs of left side ICD Code: S22.42XA - Multiple fractures of ribs, left side, initial encounter for closed fracture Status: Acute (2) 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 ICD Code: C79.9 - Secondary malignant neoplasm of unspecified site; C34.91 - Malignant neoplasm of unspecified part of right bronchus or lung Status: Chronic (3) Pulmonary embolism ICD Code: I26.99 - Other pulmonary embolism without acute cor pulmonale (4) COPD (chronic obstructive pulmonary disease) ICD Code: J44.9 - Chronic obstructive pulmonary disease, unspecified Status: Chronic Assessment and Plan NEURO: Agitated delirium Depression Pain secondary to multiple rib fractures Anxiety Haldol 2 mg IV every 4 hours as needed for agitated delirium Repeated head CT to evaluate for delayed hemorrhage (though apparently patient was not taking his anticoagulation). CT negative. ABG -->No hypercapnea and PaO2 adequate on PNR. Continue per trauma surgery: Cymbalta 20 mill grams by mouth daily, gabapentin 3 and mill grams by mouth 3 times a day, Robaxin 500 mg by mouth every 8 hours Tylenol prn . Oxycodone 5 mg every 4 hours when necessary pain. Morphine as needed for breakthrough pain. Home meds Xanax 0.25 mg by mouth 3 times a day has been on hold Remains calm. RESP: Multiple L rib fractures 8-11 COPD Bronchiectasis Right lower lobe subsegmental PE 01/2017 Tobacco abuse DuoNeb every 4 hours with EZPAP every 4 hours. Acapella. Albuterol every 2 hours as needed. IS q1 hour. On Spiriva 18 g inhaled daily Budesonide 0.5 mg neb every 12 hours. Avoid solumedrol at this point as he is not wheezing and this may exacerbate delirium. Discuss with family later in am to determine if prednisone is t a chronic med. NT suction now but avoid suctioning when on full anticoagulation due to risk of epistaxis. CXR with worsening bilateral opacities. Known lower lung bronchiectasis. Zosyn as per below. Currently following commands and protecting airway. However he has weak cough and high risk for intubation. Family would want intubation if needed. CV: Hyperlipidemia ?no longer on statin therapy GI: Regular diet. FEN/RENAL: Voiding. Creatinine normal. Monitor electrolytes and replace as indicated per ICU electrolyte replacement protocol. ID: Bronchiectasis ?Community acquired pneumonia v. aspiration. CXR with worsening bibasilar opacities and with worsening respiratory status. Send blood culture. Patient unable to produce sputum. Zosyn 3.35 gram IV q6 hours. HEME: Right lower lobe subsegmental PE diagnosed 02/12/17 Patient has been on Xarelto but he discontinued ~ 2weeks ago. Hospitalist planned to discuss with Dr. Chicas regarding his recommendations. Checked CT brain which remains negative and CXR stable without apparent hemothorax.Will cover for now with lovenox 60 subcut q12. Monitor CBC. ENDO: Euglycemic Noted that patient has prednisone listed on his medication reconciliation. According to prior records he was not on chronic prednisone. We'll discuss with family tomorrow. PROPH: Lovenox as per above. Famotidine 20 mg by mouth twice a day for stress ulcer prophylaxis. ACCESS: Port right chest. Peripheral IV. Overall impression: Continued hypoxemic respiratory failure but acceptable air movement and excursions. Problem Qualifiers (1) Multiple fractures of ribs of left side: Qualified Codes: S22.42XA - Multiple fractures of ribs, left side, initial encounter for closed fracture (2) Pulmonary embolism: Rubens Theodore MD May 02, 2017 14:29
[2017-05-02] MEDS: HALOPERIDOL LACTATE 5 MG/ML AMP IV PRN ×2 (14:51→20:35)
--- NOTE | 2017-05-02 16:20 | HHI.CCPN ---
Subjective Brief History This 82-year-old gentleman was changing his clock at home yesterday and fell from a standing position onto his left side. Patient is complaining about left chest pain. He was seen in the [place] ER and diagnosed with serial rib fractures, small pneumothorax on the left, and I was asked to admit the patient. Patient is now transferred to the main hospital considering the complexity of his additional comorbidities and problems. Patient will admitted to ICU overnight for observation. This patient was initially diagnosed with right lower lobe adenocarcinoma. He underwent resection. Then, he did well after that. A few years later, he developed right pleural effusion and was noted to have, at this point, stage IV adenocarcinoma of the lung. Patient current receiving chemotherapy. 24 Hour Review/Hospital Course For last 24 hours patient has been stable He is awake alert and oriented Tender over the left chest in face of fractures Bilateral good breath sounds and good inspiratory effort but poor oxygen exchange and poor PO2 FiO2 gradient In the face of COPD lung carcinoma and now pulmonary contusion with rib fractures this patient's respiratory status is quite precarious and he may end up on the ventilator for short period of time however right now he is doing well in every effort should be made to avoid patient ending intubated. Hemodynamically patient is stable Plan Consult pulmonary/oncology Patient is supposed to get next dose of chemotherapy on Monday 05/01 c/o thoracic pain left chest wall required to be on BIPAP for SOB HD stable,neuro intact has multiple pulmonary issues-COPD,lung cancer,PE and now rib fractures will be difficult to manage without intubation 05/02/2017 Patient improved Awake alert and oriented On decreasing amounts of oxygen Good pulmonary expansion with bilateral breath sounds and clearing lungs Oncology consult greatly appreciated Patient being transferred to floor today Will need aggressive physical therapy Objective Vital Signs Date Time Temp Pulse Resp B/P (MAP) Pulse Ox O2 Delivery O2 Flow Rate FiO2 05/02/17 12:00 90 05/02/17 12:00 98.1 18 145/79 (101) 97 05/02/17 09:24 Partial Rebreather 10.00 05/01/17 08:55 50 Result Diagram: 05/02/17 0511 05/02/17 0511 Imaging Last 24 hours Impressions Chest X-Ray 05/02/17 0600 Signed Impressions: Service Date/Time: Tuesday, May 02, 2017 05:27 - CONCLUSION: Worsening bibasilar consolidations and tiny effusions. Chemo Durand Jr., MD Disinhibition Score: 19.18 Aggression Score: 14.00 Lability Score: 14.00 Agitated Behavior Total Score: 17 Assessment and Plan Plan continue noninvasive ventilation pain control,IS follow discussion with palliative care-for plan of care Xavi Myrick MD May 02, 2017 16:20
[2017-05-02] MEDS: LIDOCAINE HCL 5% PATCH T-DERMAL SCH (17:58)
[2017-05-02] MEDS: NS + KCL 20 MEQ INJ 1,000 ML IV SCH (18:03)
[2017-05-02] MEDS ORDERED: traZODone HCL 50 MG TAB PO PRN (22:45)
[2017-05-03] VITALS (8 sets, daily range): BP systolic 126–146; BP diastolic 74–86; PULSE 97–112; RESP 17–19; TEMP 95.5–96.8; O2SAT 90–97
[2017-05-03] MEDS: RESP: ALBUTEROL 2.5 MG/IPRATROPIUM 0.5 MG NEB (SCH) NEB ×4 (01:29→17:20)
[2017-05-03] MEDS: PIPERACIL-TAZO 3.375 GM PREMIX 50 ML IV SCH ×3 (02:03→14:00)
[2017-05-03] MEDS: REMOVE OLD LIDOCAINE PATCH T-DERMAL SCH (03:03)
[2017-05-03] MEDS: ENOXAPARIN SODIUM 60 MG/0.6 ML SYRINGE SQ SCH ×2 (03:06→15:16)
[2017-05-03] MEDS: methylPREDNISolone SOD SUCC 125 MG/2 ML VIAL IV PUSH SCH ×2 (05:01→14:00)
[2017-05-03] MEDS: METHOCARBAMOL 500 MG TAB PO SCH ×2 (05:11→15:18)
[2017-05-03] MEDS: RESP: BUDESONIDE 0.5 MG/2 ML NEB NEB SCH ×2 (08:00→13:36)
[2017-05-03] MEDS: NICOTINE 21 MG/24 HR PATCH T-DERMAL SCH (09:00)
[2017-05-03] MEDS: REMOVE OLD PATCH T-DERMAL SCH (09:00)
[2017-05-03] MEDS: FAMOTIDINE 20 MG TAB PO SCH (09:08)
[2017-05-03] MEDS: HALOPERIDOL LACTATE 5 MG/ML AMP IV PRN (09:08)
[2017-05-03] MEDS: POLYETHYLENE GLYCOL 17 GM PKG PO SCH (09:08)
[2017-05-03] MEDS: DULoxetine HCl DR 20 MG CAP PO SCH (09:08)
[2017-05-03] MEDS: DOCUSATE SODIUM 50 MG/SENNA 8.6 MG TAB PO SCH (09:08)
[2017-05-03] MEDS: GABAPENTIN 300 MG CAP PO SCH ×2 (09:08→15:18)
[2017-05-03] MEDS: MORPHINE SULFATE 2 MG/ML INJ IV PUSH PRN (09:09)
[2017-05-03] MEDS: SODIUM CHLORIDE 0.9% FLUSH 10 ML FLUSH IV FLUSH SCH (09:19)
[2017-05-03] MEDS: TIOTROPIUM BROMIDE 18 MCG INH INH SCH (09:19)
[2017-05-03] MEDS: NS + KCL 20 MEQ INJ 1,000 ML IV SCH (11:45)
--- NOTE | 2017-05-03 15:02 | HHI.DS ---
Discharge Summary Admission Date Apr 29, 2017 at 13:29 Discharge Date: May 03, 2017 Admitting Diagnosis multiple rib fractures status post fall, hypoxia, history of PE (1) Fall, initial encounter ICD Codes: W19.XXXA - Unspecified fall, initial encounter Diagnosis: Principal (2) Multiple fractures of ribs of left side ICD Codes: S22.42XA - Multiple fractures of ribs, left side, initial encounter for closed fracture Status: Acute (3) H/O: lung cancer ICD Codes: Z85.118 - Personal history of other malignant neoplasm of bronchus and lung Status: Acute (4) COPD (chronic obstructive pulmonary disease) ICD Codes: J44.9 - Chronic obstructive pulmonary disease, unspecified Status: Chronic Brief History S/P trauma: Fall CBC/BMP: 05/02/17 0511 05/02/17 0511 Significant Findings Laboratory Tests Test 04/30/17 22:00 05/01/17 03:57 05/02/17 05:11 Arterial Blood Oxygen Content 20.8 Vol % (12.0-20.0) Blood Gas Hemoglobin 16.2 G/DL (12.0-16.0) White Blood Count 12.8 TH/MM3 (4.0-11.0) Calcium Level 8.4 MG/DL (8.5-10.1) Sodium Level 132 MEQ/L (136-145) 127 MEQ/L (136-145) Red Blood Count 4.24 MIL/MM3 (4.50-5.90) Mean Corpuscular Hemoglobin Concent 36.2 % (32.0-36.0) Neutrophils (%) (Auto) 93.5 % (16.0-70.0) Lymphocytes (%) (Auto) 3.1 % (9.0-44.0) Lymphocytes # (Auto) 0.3 TH/MM3 (1.0-4.8) Random Glucose 138 MG/DL (74-106) Chloride Level 92 MEQ/L (98-107) Imaging Last Impressions Chest X-Ray 05/02/17 0600 Signed Impressions: Service Date/Time: Tuesday, May 02, 2017 05:27 - CONCLUSION: Worsening bibasilar consolidations and tiny effusions. Chemo Durand Jr., MD Head CT 04/30/17 0000 Signed Impressions: Service Date/Time: Monday, May 01, 2017 00:17 - CONCLUSION: No acute disease. Chemo Durand Jr., MD Chest CT 04/29/17 0000 Signed Impressions: Service Date/Time: Saturday, April 29, 2017 07:25 - CONCLUSION: 1. Advanced COPD with bronchiectasis and basilar fibrotic changes.. 2. No evidence of pneumothorax. 3. Chronic loculated right pleural effusion. 4. Multiple left rib fractures 5. Mild cardiomegaly. Cisco Gomes MD Cervical Spine CT 04/29/17 0000 Signed Impressions: Service Date/Time: Saturday, April 29, 2017 07:19 - CONCLUSION: 1. No evidence of acute fracture or traumatic listhesis. 2. Status post intracervical fusion at C5-6. 3. Degenerative disc disease with mild spondylosis. Cisco Gomes MD Abdomen/Pelvis CT 04/29/17 0000 Signed Impressions: Service Date/Time: Saturday, April 29, 2017 07:25 - CONCLUSION: 1. No evidence of acute bony or soft tissue trauma. 2. Chronic right pleural effusion 3. Segmental airspace disease left lower lobe. 4. Stable hepatic and left renal cysts. 5. Possible mid sigmoid fecal impaction. 6. Penile prosthesis identified. Cisco Gomes MD PE at Discharge GENERAL: 82-year-old cachectic male lying in bed restless in restraints. SKIN: Warm and dry. HEAD: Atraumatic. Normocephalic. EYES: Pupils equal and round. No scleral icterus. ENT: No nasal bleeding or discharge. Mucous membranes pink and moist. NECK: Trachea midline. No JVD. CARDIOVASCULAR: Regular rate and rhythm. RESPIRATORY: No accessory muscle use. Lungs coarse and diminished to auscultation. Breath sounds equal bilaterally. GASTROINTESTINAL: Abdomen soft, non-tender, nondistended. + BS. MUSCULOSKELETAL: Extremities without cyanosis, or edema. MAEW, + perfused NEUROLOGICAL: Awake and alert. Normal speech. Hospital Course TEJON: Stood on a swivel chair to change the clocks and fell approx. 5 feet. No LOC. On Xarelto for hx of PE but has not taken it for 2 weeks. INJURIES: LEFT rib fxs (8-11) LEFT pulmonary contusion PMHx: MARSHALL, Depression, HLD, lung cancer, COPD, 2L oxygen dependent, PE (02/12/17 ), right chest infusaport, smoker, C5-6 cervical fusion LEFT rib fxs, LEFT pulmonary contusion, Hx COPD, Lung CA Supportive care Hospitalist consulted for medical management Oncology consulted Pulmonary toileting Pain control OOB- PT ordered 05/02: CXR shows worsening bibasilar infiltrates and small bilateral effusions Palliative care consulted to establish goals of care with family Family made patient DNR Family requested hospice consult Plan of care discussed with patient and RN at bedside. Collaborating trauma M.Telma. agrees with plan. Case management consulted to assist with discharge planning. Patient is clear from trauma surgery standpoint for discharge to hospice care center. Pt Condition on Discharge: Deteriorating Discharge Disposition: Hospice/Med Facility Discharge Instructions DIET: Follow Instructions for: As Tolerated, No Restrictions Activities you can perform: Weight Bearing as Gav[place] Activities to Avoid: Strenuous Activity Edith Bloom May 03, 2017 15:02
[2017-05-03] MEDS: LIDOCAINE HCL 5% PATCH T-DERMAL SCH (15:15)
== END 2017-05-03 17:54 | disposition hospice, inpatient (51) | DRG 183 ==
LOC: PHED 04:47 → NEDA 13:29 → N03A 17:30 → N06A 05-02 17:26
PROVIDERS: ADMIT Surgery; ATTEND Surgery
PROC: 5A09357 Assistance with Respiratory Ventilation, Less than 24 Consecutive Hours, Continuous Positive Airway Pressure (ICD-10-PCS; principal; 2017-05-01)
DX: S22.42XA Multiple fractures of ribs, left side, initial encounter for closed fracture (principal); J18.9 Pneumonia, unspecified organism; I26.99 Other pulmonary embolism without acute cor pulmonale; J96.91 Respiratory failure, unspecified with hypoxia; J91.0 Malignant pleural effusion; J47.0 Bronchiectasis with acute lower respiratory infection; S27.321A Contusion of lung, unilateral, initial encounter; Z99.81 Dependence on supplemental oxygen; G62.0 Drug-induced polyneuropathy; E78.5 Hyperlipidemia, unspecified; E78.00 Pure hypercholesterolemia, unspecified; H91.91 Unspecified hearing loss, right ear; T45.1X5A Adverse effect of antineoplastic and immunosuppressive drugs, initial encounter; R41.0 Disorientation, unspecified; R63.4 Abnormal weight loss; F17.210 Nicotine dependence, cigarettes, uncomplicated; F32.9 Major depressive disorder, single episode, unspecified; F41.9 Anxiety disorder, unspecified; W07.XXXA Fall from chair, initial encounter; Y92.009 Unspecified place in unspecified non-institutional (private) residence as the place of occurrence of the external cause; Z51.5 Encounter for palliative care; Z66 Do not resuscitate; Z68.20 Body mass index [BMI] 20.0-20.9, adult; Z77.090 Contact with and (suspected) exposure to asbestos; Z79.01 Long term (current) use of anticoagulants; Z85.118 Personal history of other malignant neoplasm of bronchus and lung; Z90.2 Acquired absence of lung [part of]; Z91.14 Patient's other noncompliance with medication regimen; Z91.19 Patient's noncompliance with other medical treatment and regimen; Z98.1 Arthrodesis status
CPT/HCPCS: 36600; 70450; 71045; 71260; 72125; 74177; 80048; 81001; 82805; 83735; 85025; 85027; 85610; 85730; 86850; 86900; 86901; 87040; 93005; 94002; 94150; 94640; 94664; 94667; 94668; 96374; 96375; J0131; J1630; J1650; J2270; J2405; J2543; J2930; J3480; J7121; J7613; J7626; Q9967